=== PATIENT | female | born 1995 | race Caucasian/White ===

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

== ENCOUNTER 2017-03-16 16:46 | Emergency (ER) | payer OTHER ==
[2017-03-16] MEDS: KETOROLAC 60 MG/2 ML VIAL (J1885) IM (18:12)
[2017-03-16] MEDS: ONDANSETRON 4 MG ORAL DISINTEGRATING TAB (S0181) PO (18:12)
== END 2017-03-16 18:41 | disposition home or self-care (01) ==
LOC: M ED 16:46
DX: N93.9 Abnormal uterine and vaginal bleeding, unspecified (principal); N94.6 Dysmenorrhea, unspecified; K21.9 Gastro-esophageal reflux disease without esophagitis; Z79.899 Other long term (current) drug therapy
CPT/HCPCS: J1885

== ENCOUNTER 2017-04-06 22:34 | Emergency (ER) | payer OTHER ==
[2017-04-06] MEDS: GI COCKTAIL 50ML BTL(HYOSCYAMINE/MAALOX/LIDOCAINE VISCOUS)(1:3:1) PO (23:53)
[2017-04-06] MEDS: ACETAMINOPHEN 325 MG TAB PO (23:53)
[2017-04-07 00:01] LABS: CONTROL LINE UCG INT CTR LINE PRESENT; URINE PREG TEST NEGATIVE (NEGATIVE)
[2017-04-07 00:02] LABS: KETONE, URINE AUTO RFX NEGATIVE (NEGATIVE); LEUKOCYTE ESTERASE UR AUTO RFX NEGATIVE (NEGATIVE); MUCUS, URINE RFX SMALL (NEGATIVE); NITRITE, URINE AUTO RFX NEGATIVE (NEGATIVE); RBC, URINE AUTO RFX 3 /HPF (0-3); SPECIFIC GRAVITY UR AUTO RFX 1.016 (1.002-1.035); SQUAM EPITHELIAL CELL UR AURFX 4 /HPF (0-6); WBC, URINE AUTO RFX 1 /HPF (0-3)
== END 2017-04-07 00:29 | disposition home or self-care (01) ==
LOC: M ED 22:34
DX: F41.1 Generalized anxiety disorder (principal); K21.0 Gastro-esophageal reflux disease with esophagitis; R30.0 Dysuria; J45.909 Unspecified asthma, uncomplicated; Z79.899 Other long term (current) drug therapy
CPT/HCPCS: 84703

== ENCOUNTER 2017-04-23 10:00 | Emergency (ER) | payer OTHER ==
[2017-04-23] MEDS ORDERED: MORPHINE 2 MG/ML 1ML SYRINGE (J2270) IV (10:45)
[2017-04-23 11:17] LABS: BASO % 0.5 % (0.0-1.0); EOS # 0.1 10^3/uL (0.0-0.50); EOS % 0.7 % (0.0-3.0); HEMATOCRIT 38.3 % (36.0-47.0); HEMOGLOBIN 12.8 g/dl (12.0-16.0); IMMATURE GRANULOCYTE % 0.1 % (0-3.0); LYMPH % 25.3 % (24.0-44.0); MEAN CORPUSCULAR HEMOGLOBIN 28.1 pg (27.0-33.0); MEAN CORPUSCULAR HGB CONC 33.4 g/dl (32.0-36.5); MONO # 0.8 10^3/uL (0.0-0.8); MONO % 9.7 % (0.0-5.0); NEUTROPHILS # 5.1 10^3/uL (1.8-7.7); NEUTROPHILS % 63.7 % (36.0-66.0); PLATELET COUNT, AUTOMATED 375 10^3/uL (150-450); RED BLOOD COUNT 4.56 10^6/uL (4.00-5.40); RED CELL DISTRIBUTION WIDTH 14.3 % (11.5-14.5)
[2017-04-23 11:29] LABS: KETONE, URINE AUTO RFX 2+ mg/dL (NEGATIVE); LEUKOCYTE ESTERASE UR AUTO RFX NEGATIVE (NEGATIVE); MUCUS, URINE RFX SMALL (NEGATIVE); NITRITE, URINE AUTO RFX NEGATIVE (NEGATIVE); RBC, URINE AUTO RFX 2 /HPF (0-3); SPECIFIC GRAVITY UR AUTO RFX 1.024 (1.002-1.035); SQUAM EPITHELIAL CELL UR AURFX 20 /HPF (0-6); WBC, URINE AUTO RFX 1 /HPF (0-3)
[2017-04-23] MEDS: NS 1,000 ML IV (11:30)
[2017-04-23 11:38] LABS: ALBUMIN 4.1 GM/DL (3.2-5.2); ALBUMIN/GLOBULIN RATIO 1.32 (1.00-1.93); ALKALINE PHOSPHATASE 77 U/L (45-117); ALT/SGPT 20 U/L (12-78); ANION GAP 10 MEQ/L (8-16); AST/SGOT 16 U/L (7-37); BILIRUBIN,TOTAL 0.7 MG/DL (0.2-1.0); BLOOD UREA NITROGEN 5 MG/DL (7-18); CALCIUM LEVEL 8.9 MG/DL (8.5-10.1); CARBON DIOXIDE LEVEL 21 MEQ/L (21-32); CHLORIDE LEVEL 108 MEQ/L (98-107); CREATININE FOR GFR 0.59 MG/DL (0.55-1.30); GLUCOSE, FASTING 93 MG/DL (70-100); SODIUM LEVEL 139 MEQ/L (136-145); TOTAL PROTEIN 7.2 GM/DL (6.4-8.2)
[2017-04-23 11:53] LABS: HCG, SERUM QUANTITATIVE 8955 MIU/ML
== END 2017-04-23 13:43 | disposition home or self-care (01) ==
LOC: M ED 10:00
DX: O20.8 Other hemorrhage in early pregnancy (principal); O99.511 Diseases of the respiratory system complicating pregnancy, first trimester; J45.909 Unspecified asthma, uncomplicated; O99.611 Diseases of the digestive system complicating pregnancy, first trimester; K21.9 Gastro-esophageal reflux disease without esophagitis; O99.341 Other mental disorders complicating pregnancy, first trimester; F41.9 Anxiety disorder, unspecified; F33.9 Major depressive disorder, recurrent, unspecified; Z3A.01 Less than 8 weeks gestation of pregnancy; O34.81 Maternal care for other abnormalities of pelvic organs, first trimester; N83.202 Unspecified ovarian cyst, left side; Z79.899 Other long term (current) drug therapy
CPT/HCPCS: 76801

== ENCOUNTER 2017-04-25 18:49 | Emergency (ER) | payer OTHER ==
[2017-04-25 19:26] LABS: BEDSIDE GLUCOSE 68 MG/DL (70-105)
== END 2017-04-25 20:29 | disposition home or self-care (01) ==
LOC: M ED 18:49
DX: E16.2 Hypoglycemia, unspecified (principal); J45.909 Unspecified asthma, uncomplicated; K21.9 Gastro-esophageal reflux disease without esophagitis; R51 Headache; Z79.899 Other long term (current) drug therapy
CPT/HCPCS: 99284

== ENCOUNTER 2017-05-21 20:16 | Emergency (ER) | payer OTHER ==
[2017-05-21] MEDS: METOCLOPRAMIDE INJ 10MG/2ML VIAL (J2765) IV (23:06)
[2017-05-21] MEDS: NS 1,000 ML IV (23:06)
[2017-05-21] MEDS: ACETAMINOPHEN 325 MG TAB PO (23:06)
[2017-05-21 23:11] LABS: BASO # 0.1 10^3/uL (0.0-0.2); BASO % 0.5 % (0.0-1.0); EOS # 0.2 10^3/uL (0.0-0.50); EOS % 1.4 % (0.0-3.0); HEMATOCRIT 44.8 % (36.0-47.0); HEMOGLOBIN 14.5 g/dl (12.0-16.0); IMMATURE GRANULOCYTE % 0.4 % (0-3.0); LYMPH % 27.7 % (24.0-44.0); MEAN CORPUSCULAR HEMOGLOBIN 27.7 pg (27.0-33.0); MEAN CORPUSCULAR HGB CONC 32.4 g/dl (32.0-36.5); MEAN CORPUSCULAR VOLUME 85.7 fl (80.0-96.0); MONO # 1.1 10^3/uL (0.0-0.8); MONO % 10.1 % (0.0-5.0); NEUTROPHILS # 6.5 10^3/uL (1.8-7.7); NEUTROPHILS % 59.9 % (36.0-66.0); PLATELET COUNT, AUTOMATED 373 10^3/uL (150-450); RED BLOOD COUNT 5.23 10^6/uL (4.00-5.40); RED CELL DISTRIBUTION WIDTH 14.4 % (11.5-14.5); WHITE BLOOD COUNT 10.8 10^3/uL (4.0-10.0)
[2017-05-22 00:34] LABS: ALBUMIN 3.7 GM/DL (3.2-5.2); ALBUMIN/GLOBULIN RATIO 1.19 (1.00-1.93); ALKALINE PHOSPHATASE 75 U/L (45-117); ALT/SGPT 46 U/L (12-78); ANION GAP 6 MEQ/L (8-16); AST/SGOT 26 U/L (7-37); BILIRUBIN,TOTAL 0.5 MG/DL (0.2-1.0); BLOOD UREA NITROGEN 7 MG/DL (7-18); CALCIUM LEVEL 8.6 MG/DL (8.5-10.1); CARBON DIOXIDE LEVEL 24 MEQ/L (21-32); CHLORIDE LEVEL 108 MEQ/L (98-107); CREATININE FOR GFR 0.59 MG/DL (0.55-1.30); GLUCOSE, FASTING 100 MG/DL (70-100); POTASSIUM SERUM 3.7 MEQ/L (3.5-5.1); SODIUM LEVEL 138 MEQ/L (136-145); TOTAL PROTEIN 6.8 GM/DL (6.4-8.2)
== END 2017-05-22 01:11 | disposition home or self-care (01) ==
LOC: M ED 05-22 01:11
DX: O26.891 Other specified pregnancy related conditions, first trimester (principal); M94.0 Chondrocostal junction syndrome [Tietze]; O21.0 Mild hyperemesis gravidarum; Z3A.09 9 weeks gestation of pregnancy; O99.611 Diseases of the digestive system complicating pregnancy, first trimester; K21.9 Gastro-esophageal reflux disease without esophagitis
CPT/HCPCS: J2765

== ENCOUNTER 2017-06-06 20:46 | Emergency (ER) | payer OTHER ==
[2017-06-06] MEDS: ACETAMINOPHEN TAB 650MG DOSE (2X325MG) PO (21:37)
[2017-06-06] MEDS: PANTOPRAZOLE 40MG INJ (PROTONIX) (C9113) IV (21:37)
[2017-06-06] MEDS: NS 1,000 ML IV ×2 (21:37→23:15)
[2017-06-06 21:38] LABS: BASO % 0.3 % (0.0-1.0); EOS # 0.1 10^3/uL (0.0-0.50); EOS % 0.7 % (0.0-3.0); HEMATOCRIT 36.2 % (36.0-47.0); HEMOGLOBIN 12.2 g/dl (12.0-15.5); IMMATURE GRANULOCYTE % 0.3 % (0-3.0); LYMPH # 2.3 10^3/uL (1.5-6.5); MEAN CORPUSCULAR HEMOGLOBIN 28.5 pg (27.0-33.0); MEAN CORPUSCULAR HGB CONC 33.7 g/dl (32.0-36.5); MEAN CORPUSCULAR VOLUME 84.6 fl (80.0-96.0); MONO % 8.9 % (0.0-5.0); NEUTROPHILS # 8.2 10^3/uL (1.8-7.7); NEUTROPHILS % 69.8 % (36.0-66.0); PLATELET COUNT, AUTOMATED 316 10^3/uL (150-450); RED BLOOD COUNT 4.28 10^6/uL (4.00-5.40); RED CELL DISTRIBUTION WIDTH 14.2 % (11.5-14.5); WHITE BLOOD COUNT 11.7 10^3/uL (4.0-10.0)
[2017-06-06 21:54] LABS: ALBUMIN 3.5 GM/DL (3.2-5.2); ALBUMIN/GLOBULIN RATIO 0.95 (1.00-1.93); ALKALINE PHOSPHATASE 72 U/L (45-117); ALT/SGPT 32 U/L (12-78); ANION GAP 7 MEQ/L (8-16); AST/SGOT 19 U/L (7-37); BILIRUBIN,DIRECT < 0.1 MG/DL (0.0-0.2); BILIRUBIN,TOTAL 0.4 MG/DL (0.2-1.0); BLOOD UREA NITROGEN 7 MG/DL (7-18); CALCIUM LEVEL 8.8 MG/DL (8.5-10.1); CARBON DIOXIDE LEVEL 25 MEQ/L (21-32); CHLORIDE LEVEL 107 MEQ/L (98-107); CREATININE FOR GFR 0.53 MG/DL (0.55-1.30); GLUCOSE, FASTING 86 MG/DL (70-100); LIPASE 101 U/L (73-393); POTASSIUM SERUM 3.6 MEQ/L (3.5-5.1); SODIUM LEVEL 139 MEQ/L (136-145); TOTAL PROTEIN 7.2 GM/DL (6.4-8.2)
[2017-06-06 22:07] LABS: KETONE, URINE AUTO RFX NEGATIVE (NEGATIVE); LEUKOCYTE ESTERASE UR AUTO RFX NEGATIVE (NEGATIVE); NITRITE, URINE AUTO RFX NEGATIVE (NEGATIVE); RBC, URINE AUTO RFX 1 /HPF (0-3); SPECIFIC GRAVITY UR AUTO RFX 1.001 (1.002-1.035); SQUAM EPITHELIAL CELL UR AURFX 0 /HPF (0-6); WBC, URINE AUTO RFX 0 /HPF (0-3)
[2017-06-06 22:29] LABS: HCG, SERUM QUANTITATIVE 58571 MIU/ML
[2017-06-06 23:40] LABS: CHLAMYDIA DNA AMPLIFICATION NEGATIVE (NEGATIVE); GC DNA AMPLIFICATION NEGATIVE (NEGATIVE)
== END 2017-06-07 00:11 | disposition home or self-care (01) ==
LOC: M ED 06-07 00:11
DX: O99.89 Other specified diseases and conditions complicating pregnancy, childbirth and the puerperium (principal); R51 Headache; K21.9 Gastro-esophageal reflux disease without esophagitis; O99.341 Other mental disorders complicating pregnancy, first trimester; F41.9 Anxiety disorder, unspecified; Z3A.12 12 weeks gestation of pregnancy; Z79.899 Other long term (current) drug therapy; Z91.013 Allergy to seafood; Z91.018 Allergy to other foods
CPT/HCPCS: C9113

== ENCOUNTER 2017-07-01 06:02 | Emergency (ER) | payer OTHER ==
[2017-07-01] MEDS: ONDANSETRON 4MG/2ML VIAL (J2405) IV (06:45)
[2017-07-01] MEDS: NS 1,000 ML IV (07:00)
[2017-07-01 07:05] LABS: BASO # 0.1 10^3/uL (0.0-0.2); BASO % 0.5 % (0.0-1.0); EOS # 0.1 10^3/uL (0.0-0.50); HEMATOCRIT 35.3 % (36.0-47.0); IMMATURE GRANULOCYTE % 0.4 % (0-3.0); LYMPH # 2.8 10^3/uL (1.5-6.5); LYMPH % 26.6 % (24.0-44.0); MEAN CORPUSCULAR HEMOGLOBIN 28.5 pg (27.0-33.0); MEAN CORPUSCULAR VOLUME 83.8 fl (80.0-96.0); MONO % 9.4 % (0.0-5.0); NEUTROPHILS # 6.5 10^3/uL (1.8-7.7); NEUTROPHILS % 62.1 % (36.0-66.0); PLATELET COUNT, AUTOMATED 292 10^3/uL (150-450); RED BLOOD COUNT 4.21 10^6/uL (4.00-5.40); RED CELL DISTRIBUTION WIDTH 13.7 % (11.5-14.5); WHITE BLOOD COUNT 10.5 10^3/uL (4.0-10.0)
[2017-07-01 07:30] LABS: ALBUMIN 3.2 GM/DL (3.2-5.2); ALBUMIN/GLOBULIN RATIO 0.97 (1.00-1.93); ALKALINE PHOSPHATASE 79 U/L (45-117); ALT/SGPT 31 U/L (12-78); ANION GAP 9 MEQ/L (8-16); AST/SGOT 21 U/L (7-37); BILIRUBIN,DIRECT 0.1 MG/DL (0.0-0.2); BILIRUBIN,TOTAL 0.4 MG/DL (0.2-1.0); BLOOD UREA NITROGEN 4 MG/DL (7-18); CALCIUM LEVEL 8.8 MG/DL (8.5-10.1); CARBON DIOXIDE LEVEL 23 MEQ/L (21-32); CHLORIDE LEVEL 109 MEQ/L (98-107); CREATININE FOR GFR 0.54 MG/DL (0.55-1.30); GLUCOSE, FASTING 97 MG/DL (70-100); LIPASE 95 U/L (73-393); POTASSIUM SERUM 3.9 MEQ/L (3.5-5.1); SODIUM LEVEL 141 MEQ/L (136-145); TOTAL PROTEIN 6.5 GM/DL (6.4-8.2)
[2017-07-01 07:42] LABS: KETONE, URINE AUTO RFX NEGATIVE (NEGATIVE); LEUKOCYTE ESTERASE UR AUTO RFX NEGATIVE (NEGATIVE); NITRITE, URINE AUTO RFX NEGATIVE (NEGATIVE); RBC, URINE AUTO RFX 1 /HPF (0-3); SPECIFIC GRAVITY UR AUTO RFX 1.002 (1.002-1.035); SQUAM EPITHELIAL CELL UR AURFX 2 /HPF (0-6); WBC, URINE AUTO RFX 1 /HPF (0-3)
[2017-07-01] MEDS: ACETAMINOPHEN 325 MG TAB PO (07:56)
== END 2017-07-01 08:50 | disposition home or self-care (01) ==
LOC: M ED 06:02
DX: O21.9 Vomiting of pregnancy, unspecified (principal); O99.512 Diseases of the respiratory system complicating pregnancy, second trimester; J45.909 Unspecified asthma, uncomplicated; O99.612 Diseases of the digestive system complicating pregnancy, second trimester; K21.9 Gastro-esophageal reflux disease without esophagitis; Z3A.16 16 weeks gestation of pregnancy; Z79.899 Other long term (current) drug therapy; Z91.018 Allergy to other foods; Z91.013 Allergy to seafood
CPT/HCPCS: J2405

== ENCOUNTER 2017-10-20 15:18 | Emergency (ER) | payer OTHER ==
[2017-10-20 16:12] LABS: BASO # 0.1 10^3/uL (0.0-0.2); BASO % 0.5 % (0.0-1.0); EOS # 0.1 10^3/uL (0.0-0.50); EOS % 0.6 % (0.0-3.0); HEMATOCRIT 31.2 % (36.0-47.0); HEMOGLOBIN 10.1 g/dl (12.0-15.5); IMMATURE GRANULOCYTE % 0.9 % (0-3.0); LYMPH # 2.1 10^3/uL (1.5-6.5); LYMPH % 19.8 % (24.0-44.0); MEAN CORPUSCULAR HEMOGLOBIN 27.4 pg (27.0-33.0); MEAN CORPUSCULAR HGB CONC 32.4 g/dl (32.0-36.5); MEAN CORPUSCULAR VOLUME 84.8 fl (80.0-96.0); MONO % 9.2 % (0.0-5.0); NEUTROPHILS # 7.3 10^3/uL (1.8-7.7); PLATELET COUNT, AUTOMATED 293 10^3/uL (150-450); RED BLOOD COUNT 3.68 10^6/uL (4.00-5.40); WHITE BLOOD COUNT 10.6 10^3/uL (4.0-10.0)
[2017-10-20] MEDS: NS 1,000 ML IV (16:19)
[2017-10-20] MEDS: ONDANSETRON 4MG/2ML VIAL (J2405) IV (16:19)
[2017-10-20 16:28] LABS: KETONE, URINE AUTO RFX NEGATIVE (NEGATIVE); LEUKOCYTE ESTERASE UR AUTO RFX NEGATIVE (NEGATIVE); MUCUS, URINE RFX SMALL (NEGATIVE); NITRITE, URINE AUTO RFX NEGATIVE (NEGATIVE); RBC, URINE AUTO RFX 4 /HPF (0-3); SPECIFIC GRAVITY UR AUTO RFX 1.024 (1.002-1.035); SQUAM EPITHELIAL CELL UR AURFX 3 /HPF (0-6); WBC, URINE AUTO RFX 3 /HPF (0-3)
[2017-10-20 16:37] LABS: ALBUMIN 2.5 GM/DL (3.2-5.2); ALBUMIN/GLOBULIN RATIO 0.56 (1.00-1.93); ALKALINE PHOSPHATASE 133 U/L (45-117); ALT/SGPT 29 U/L (12-78); ANION GAP 10 MEQ/L (8-16); AST/SGOT 28 U/L (7-37); BILIRUBIN,DIRECT < 0.1 MG/DL (0.0-0.2); BILIRUBIN,TOTAL 0.3 MG/DL (0.2-1.0); BLOOD UREA NITROGEN 5 MG/DL (7-18); CALCIUM LEVEL 8.2 MG/DL (8.5-10.1); CARBON DIOXIDE LEVEL 20 MEQ/L (21-32); CHLORIDE LEVEL 109 MEQ/L (98-107); CK-MB VALUE MASS < 1.0 NG/ML (<3.6); CPK CREATINE PHOSPHOKINASE 65 U/L (26-192); CREATININE FOR GFR 0.61 MG/DL (0.55-1.30); GLUCOSE, FASTING 85 MG/DL (70-100); INR 1.02; LIPASE 111 U/L (73-393); MAGNESIUM LEVEL 1.9 MG/DL (1.8-2.4); MB/CK RELATIVE INDEX 1.53 (< OR =4); POTASSIUM SERUM 3.9 MEQ/L (3.5-5.1); PROTHROMBIN TIME 13.5 SECONDS (12.1-14.4); SODIUM LEVEL 139 MEQ/L (136-145); TROPONIN I < 0.02 NG/ML (< 0.10)
== END 2017-10-20 17:53 | disposition home or self-care (01) ==
LOC: M ED 15:18
DX: F41.9 Anxiety disorder, unspecified (principal); R00.0 Tachycardia, unspecified; I45.19 Other right bundle-branch block; Z79.899 Other long term (current) drug therapy; Z91.013 Allergy to seafood; Z91.018 Allergy to other foods
CPT/HCPCS: J2405

== ENCOUNTER 2017-10-22 10:29 | Emergency (ER) | payer OTHER | END 2017-10-22 12:34 | disposition home or self-care (01) | LOC: M ED 10:29 | DX: O99.89 Other specified diseases and conditions complicating pregnancy, childbirth and the puerperium (principal); R55 Syncope and collapse; Z91.018 Allergy to other foods; Z91.013 Allergy to seafood; Z3A.32 32 weeks gestation of pregnancy; Z79.899 Other long term (current) drug therapy | CPT/HCPCS: 93005 ==

== ENCOUNTER 2017-11-05 17:28 | Emergency (ER) | payer OTHER ==
[2017-11-05] MEDS: NS 1,000 ML IV ×2 (18:16)
[2017-11-05 18:29] LABS: BASO % 0.3 % (0.0-1.0); EOS % 0.4 % (0.0-3.0); HEMOGLOBIN 10.1 g/dl (12.0-15.5); IMMATURE GRANULOCYTE % 0.8 % (0-3.0); KETONE, URINE AUTO RFX NEGATIVE (NEGATIVE); LEUKOCYTE ESTERASE UR AUTO RFX NEGATIVE (NEGATIVE); LYMPH # 1.7 10^3/uL (1.5-6.5); LYMPH % 15.8 % (24.0-44.0); MEAN CORPUSCULAR HEMOGLOBIN 26.9 pg (27.0-33.0); MEAN CORPUSCULAR HGB CONC 31.6 g/dl (32.0-36.5); MEAN CORPUSCULAR VOLUME 85.1 fl (80.0-96.0); MONO # 1.1 10^3/uL (0.0-0.8); MONO % 10.4 % (0.0-5.0); NEUTROPHILS # 7.8 10^3/uL (1.8-7.7); NEUTROPHILS % 72.3 % (36.0-66.0); NITRITE, URINE AUTO RFX NEGATIVE (NEGATIVE); PLATELET COUNT, AUTOMATED 316 10^3/uL (150-450); RBC, URINE AUTO RFX 1 /HPF (0-3); RED BLOOD COUNT 3.76 10^6/uL (4.00-5.40); RED CELL DISTRIBUTION WIDTH 13.2 % (11.5-14.5); SQUAM EPITHELIAL CELL UR AURFX 1 /HPF (0-6); WBC, URINE AUTO RFX 1 /HPF (0-3); WHITE BLOOD COUNT 10.8 10^3/uL (4.0-10.0)
[2017-11-05 19:11] LABS: ALBUMIN 2.7 GM/DL (3.2-5.2); ALBUMIN/GLOBULIN RATIO 0.69 (1.00-1.93); ALKALINE PHOSPHATASE 150 U/L (45-117); ALT/SGPT 26 U/L (12-78); ANION GAP 8 MEQ/L (8-16); AST/SGOT 26 U/L (7-37); BILIRUBIN,TOTAL 0.5 MG/DL (0.2-1.0); BLOOD UREA NITROGEN 6 MG/DL (7-18); CALCIUM LEVEL 8.7 MG/DL (8.5-10.1); CARBON DIOXIDE LEVEL 23 MEQ/L (21-32); CHLORIDE LEVEL 107 MEQ/L (98-107); CK-MB VALUE MASS < 1.0 NG/ML (<3.6); CPK CREATINE PHOSPHOKINASE 44 U/L (26-192); CREATININE FOR GFR 0.61 MG/DL (0.55-1.30); FREE THYROXINE INDEX 2.9 % (1.3-4.8); GLUCOSE, FASTING 91 MG/DL (70-100); MB/CK RELATIVE INDEX 2.27 (< OR =4); POTASSIUM SERUM 3.8 MEQ/L (3.5-5.1); SODIUM LEVEL 138 MEQ/L (136-145); T UPTAKE 21 % (30-39); THYROXINE (T4) 13.6 UG/DL (6.0-11.6); TOTAL PROTEIN 6.6 GM/DL (6.4-8.2); TROPONIN I < 0.02 NG/ML (< 0.10)
[2017-11-05] MEDS ORDERED: ISOVUE-370 76% 100ML VIAL (Q9967) As Ordered ×2 (19:57)
[2017-11-05] MEDS: ENOXAPARIN 80 MG/0.8 ML SYRINGE (J1650) SC ×2 (21:30)
[2017-11-05] MEDS: ALBUTEROL 90 MCG/ACT 8GM HFA INHALER INH ×2 (22:20)
== END 2017-11-05 22:20 | disposition home or self-care (01) ==
LOC: M ED 17:28
DX: O88.813 Other embolism in pregnancy, third trimester (principal); R00.0 Tachycardia, unspecified; R94.31 Abnormal electrocardiogram [ECG] [EKG]; Z3A.34 34 weeks gestation of pregnancy; O99.511 Diseases of the respiratory system complicating pregnancy, first trimester; O99.354 Diseases of the nervous system complicating childbirth; O99.344 Other mental disorders complicating childbirth; Z79.899 Other long term (current) drug therapy; Z91.013 Allergy to seafood; Z91.018 Allergy to other foods
CPT/HCPCS: Q9967

== ENCOUNTER 2017-11-10 12:04 | Inpatient (IN) | payer OTHER ==
[2017-11-10 12:44] LABS: HEMATOCRIT 29.7 % (36.0-47.0); HEMOGLOBIN 9.4 g/dl (12.0-15.5); MEAN CORPUSCULAR HEMOGLOBIN 26.2 pg (27.0-33.0); MEAN CORPUSCULAR HGB CONC 31.6 g/dl (32.0-36.5); MEAN CORPUSCULAR VOLUME 82.7 fl (80.0-96.0); PLATELET COUNT, AUTOMATED 268 10^3/uL (150-450); RED BLOOD COUNT 3.59 10^6/uL (4.00-5.40); RED CELL DISTRIBUTION WIDTH 13.1 % (11.5-14.5); WHITE BLOOD COUNT 10.7 10^3/uL (4.0-10.0)
[2017-11-10 12:54] LABS: INR 0.92; PROTHROMBIN TIME 12.5 SECONDS (12.1-14.4)
[2017-11-10 12:55] LABS: FIBRINOGEN 527 MG/DL (221-452); PARTIAL THROMBOPLASTIN TIME 28.6 SECONDS (25.4-37.6)
[2017-11-10 13:44] LABS: ALBUMIN 2.4 GM/DL (3.2-5.2); ALBUMIN/GLOBULIN RATIO 0.56 (1.00-1.93); ALKALINE PHOSPHATASE 144 U/L (45-117); ALT/SGPT 20 U/L (12-78); ANION GAP 13 MEQ/L (8-16); AST/SGOT 32 U/L (7-37); BILIRUBIN,TOTAL 0.3 MG/DL (0.2-1.0); BLOOD UREA NITROGEN 4 MG/DL (7-18); CALCIUM LEVEL 8.6 MG/DL (8.5-10.1); CARBON DIOXIDE LEVEL 19 MEQ/L (21-32); CHLORIDE LEVEL 109 MEQ/L (98-107); CREATININE FOR GFR 0.62 MG/DL (0.55-1.30); GLUCOSE, FASTING 89 MG/DL (70-100); POTASSIUM SERUM 3.4 MEQ/L (3.5-5.1); SODIUM LEVEL 141 MEQ/L (136-145); TOTAL PROTEIN 6.7 GM/DL (6.4-8.2)
[2017-11-10] MEDS: LACTATED RINGER'S 1000 ML IV (13:51)
[2017-11-10] MEDS: LR 1,000 ML IV (14:49)
[2017-11-11] MEDS: HEPARIN SOD (PORCINE) 5000 UNITS/ML VIAL SQ (06:54)
== END 2017-11-11 09:38 | disposition home or self-care (01) | DRG 781 ==
LOC: M LDI 12:04
PROVIDERS: Obstetrics & Gynecology
DX: O36.8330 Maternal care for abnormalities of the fetal heart rate or rhythm, third trimester, not applicable or unspecified (principal); O99.343 Other mental disorders complicating pregnancy, third trimester; Z3A.35 35 weeks gestation of pregnancy; F32.9 Major depressive disorder, single episode, unspecified; F41.0 Panic disorder [episodic paroxysmal anxiety]; Z86.711 Personal history of pulmonary embolism; Z79.01 Long term (current) use of anticoagulants

== ENCOUNTER 2017-12-08 13:38 | Inpatient (IN) | payer OTHER ==
[2017-12-08] MEDS: LACTATED RINGER'S 1000 ML IV (14:48)
[2017-12-08 14:56] LABS: BASO % 0.5 % (0.0-1.0); EOS % 0.4 % (0.0-3.0); HEMATOCRIT 28.8 % (36.0-47.0); HEMOGLOBIN 8.9 g/dl (12.0-15.5); IMMATURE GRANULOCYTE % 1.2 % (0-3.0); LYMPH # 2.2 10^3/uL (1.5-6.5); LYMPH % 26.7 % (24.0-44.0); MEAN CORPUSCULAR HEMOGLOBIN 24.7 pg (27.0-33.0); MEAN CORPUSCULAR HGB CONC 30.9 g/dl (32.0-36.5); MEAN CORPUSCULAR VOLUME 79.8 fl (80.0-96.0); MONO # 0.9 10^3/uL (0.0-0.8); MONO % 10.9 % (0.0-5.0); NEUTROPHILS % 60.3 % (36.0-66.0); PLATELET COUNT, AUTOMATED 317 10^3/uL (150-450); RED BLOOD COUNT 3.61 10^6/uL (4.00-5.40); RED CELL DISTRIBUTION WIDTH 14.5 % (11.5-14.5); WHITE BLOOD COUNT 8.3 10^3/uL (4.0-10.0)
[2017-12-08] MEDS ORDERED: miSOPROStol 50 MCG 1/2 TAB (S0191) PO (16:30)
[2017-12-08] MEDS: miSOPROStol 50 MCG 1/2 TAB (S0191) PO (17:04)
[2017-12-08] MEDS: PROMETHAZINE INJ 25 MG/ML VIAL (J2550) IV (23:21)
[2017-12-08] MEDS: NALBUPHINE HCL 10 MG/ML AMP (J2300) IV (23:21)
[2017-12-09] MEDS: NALBUPHINE HCL 10 MG/ML AMP (J2300) IV (03:00)
[2017-12-09] MEDS: OXYTOCIN DRIP 30 UNITS in APPROPRIATE DILUENT 1 EA IV (08:42)
[2017-12-09] MEDS ORDERED: FENTANYL 2MCG/ML ROPIVACAINE 0.2% IN 0.9% NACL 200ML IVBAG As Ordered (09:09)
[2017-12-09] MEDS: LR 1,000 ML IV ×3 (09:33→18:29)
[2017-12-09] MEDS: FENTANYL/ROPIVACAINE/NACL BAG 200 ML EPIDURAL (09:57)
[2017-12-09] MEDS ORDERED: diphenhydrAMINE INJ 50MG/ML VIAL (J1200) IV (11:00)
[2017-12-09] MEDS ORDERED: EPIDURAL/PCA KEYS XX (11:00)
[2017-12-09] MEDS ORDERED: REFRIGERATOR IV KEYS XX (11:00)
[2017-12-09] MEDS ORDERED: NALOXONE INJ 0.4 MG/1 ML VIAL (J2310) IV (11:00)
[2017-12-09] MEDS ORDERED: EPIDURAL COMMENT XX (11:00)
[2017-12-09] MEDS ORDERED: ONDANSETRON 4MG/2ML VIAL (J2405) IV (11:00)
[2017-12-09] MEDS: ePHEDrine SULFATE 25 MG/5 ML(5MG/ML) SYRINGE IV ×2 (11:21→11:31)
[2017-12-09] MEDS: LACTATED RINGER'S 1000 ML IV (11:22)
[2017-12-09] MEDS ORDERED: ACETAMINOPHEN TAB 650MG DOSE (2X325MG) As Ordered (22:19)
[2017-12-10] MEDS: ACETAMINOPHEN TAB 650MG DOSE (2X325MG) PO ×2 (04:45→22:15)
[2017-12-10] MEDS ORDERED: RHOGAM 300 MCG (1500 IU) INJ (J2790) IM (08:45)
[2017-12-10] MEDS ORDERED: METOCLOPRAMIDE INJ 10MG/2ML VIAL (J2765) IV (08:45)
[2017-12-10] MEDS ORDERED: MEASLES,MUMPS,RUBELLA VACCINE INJ (MMR-II) (90707) SC (08:45)
[2017-12-10] MEDS: PRENATAL VITAMINS CHEWABLE TABLET PO (09:00)
[2017-12-10] MEDS: DOCUSATE SODIUM 100 MG CAP PO ×2 (09:00→20:14)
[2017-12-10] MEDS: IBUPROFEN 800 MG TAB PO ×2 (10:48→20:14)
[2017-12-10] MEDS: OXYTOCIN DRIP 30 UNITS in APPROPRIATE DILUENT 1 EA IV (10:48)
[2017-12-10] MEDS: ENOXAPARIN 80 MG/0.8 ML SYRINGE (J1650) SC (18:33)
[2017-12-11] MEDS: IBUPROFEN 800 MG TAB PO ×2 (03:19→17:00)
[2017-12-11] MEDS: ENOXAPARIN 80 MG/0.8 ML SYRINGE (J1650) SC ×2 (05:42→17:46)
[2017-12-11] MEDS: ACETAMINOPHEN TAB 650MG DOSE (2X325MG) PO ×2 (08:22→22:01)
[2017-12-11] MEDS: PRENATAL VITAMINS CHEWABLE TABLET PO (08:22)
[2017-12-11] MEDS: DOCUSATE SODIUM 100 MG CAP PO ×2 (08:22→21:00)
[2017-12-12] MEDS: IBUPROFEN 800 MG TAB PO (04:55)
[2017-12-12] MEDS: ENOXAPARIN 80 MG/0.8 ML SYRINGE (J1650) SC (06:37)
[2017-12-12] MEDS: PRENATAL VITAMINS CHEWABLE TABLET PO (08:09)
[2017-12-12] MEDS: ACETAMINOPHEN TAB 650MG DOSE (2X325MG) PO (08:09)
[2017-12-12] MEDS: DOCUSATE SODIUM 100 MG CAP PO (08:10)
[2017-12-12] MEDS: DIBUCAINE 1% OINTMENT 30GM TOP (10:44)
== END 2017-12-12 12:40 | disposition home or self-care (01) | DRG 774 ==
LOC: M LDI 13:38 → M OBS 12-10 13:01
PROVIDERS: Obstetrics & Gynecology
PROC: 3E0P7GC Introduction of Other Therapeutic Substance into Female Reproductive, Via Natural or Artificial Opening (ICD-10-PCS; 2017-12-08)
PROC: 10E0XZZ Delivery of Products of Conception, External Approach (ICD-10-PCS; principal; 2017-12-10)
PROC: 0UQG7ZZ Repair Vagina, Via Natural or Artificial Opening (ICD-10-PCS; 2017-12-10)
DX: O88.22 Thromboembolism in childbirth (principal); I26.99 Other pulmonary embolism without acute cor pulmonale; O71.4 Obstetric high vaginal laceration alone; Z3A.39 39 weeks gestation of pregnancy; O99.52 Diseases of the respiratory system complicating childbirth; J45.909 Unspecified asthma, uncomplicated; Z37.0 Single live birth; Z79.01 Long term (current) use of anticoagulants

== ENCOUNTER 2017-12-13 00:31 | Emergency (ER) | payer OTHER | END 2017-12-13 00:47 | disposition left against medical advice (07) | LOC: M ED 00:31 | DX: R50.9 Fever, unspecified (principal); Z53.21 Procedure and treatment not carried out due to patient leaving prior to being seen by health care provider ==

== ENCOUNTER 2017-12-30 20:34 | Emergency (ER) | payer OTHER ==
[2017-12-30] MEDS: FLEET ENEMA PR (21:47)
== END 2017-12-30 22:44 | disposition home or self-care (01) ==
LOC: M ED 20:34
DX: K59.00 Constipation, unspecified (principal); N93.9 Abnormal uterine and vaginal bleeding, unspecified; Z91.018 Allergy to other foods; Z91.013 Allergy to seafood; Z79.01 Long term (current) use of anticoagulants
CPT/HCPCS: 99283

== ENCOUNTER 2018-03-22 15:13 | Emergency (ER) | payer OTHER ==
[~2018-03-22] VITALS: Ht 157.5 cm; Wt 62.7 kg
[~2018-03-22 15:13] MED LIST changes: +ALBU17IN2 INH; +ALBU83IN INH; +BUTACAP4 PO; +COLA100C5 PO; +EQ N PO; +GAS-125C PO; +GAS-80CH PO; +HEPA1000VL SQ; +IBUP-1114 PO; +LOVE0.6I2 SC; +LOVE1INJ SC; +MAPA500T2 PO; +NAPR-50 PO; -NAPR500T PO; +NEXI20CA PO; +NEXI20GR PO; +OTC stool softener; +POLY33503 PO; +PRENTAB77 PO; +PRENTAB9 PO; +PROT1TAB2 PO; +REGL10TA6 PO; +SERT-155 PO; +STOO100C PO; +TUMS500C PO; +TUMSCHW16 PO; +VENTAER INH; +ZOFR4TAB14 PO; +[UNRECOGNIZED DRUG - CODE] INH; +[UNRECOGNIZED DRUG - REMARK]
[2018-03-22 15:55] LABS: HEMATOCRIT 41.9 % (36.0-47.0); HEMOGLOBIN 13.5 g/dl (12.0-15.5); MEAN CORPUSCULAR HEMOGLOBIN 27.1 pg (27.0-33.0); MEAN CORPUSCULAR HGB CONC 32.2 g/dl (32.0-36.5); MEAN CORPUSCULAR VOLUME 84.1 fl (80.0-96.0); PLATELET COUNT, AUTOMATED 413 10^3/uL (150-450); RED BLOOD COUNT 4.98 10^6/uL (4.00-5.40); WHITE BLOOD COUNT 8.3 10^3/uL (4.0-10.0)
[2018-03-22 16:27] LABS: URINE PREG TEST NEGATIVE (NEGATIVE)
[2018-03-22 17:37] VITALS: BP 102/57
== END 2018-03-22 17:42 | disposition home or self-care (01) ==
LOC: M ED 15:13
DX: N92.1 Excessive and frequent menstruation with irregular cycle (principal)

== ENCOUNTER 2018-04-21 22:54 | Emergency (ER) | payer OTHER ==
[~2018-04-21] VITALS: Ht 157.5 cm; Wt 63.6 kg
[2018-04-22] MEDS ORDERED: ISOVUE-370 76% 100ML VIAL (Q9967) As Ordered ONE (00:30)
[2018-04-22] MEDS ORDERED: NS 500 ML IV ONE (00:30)
[2018-04-22 00:37] LABS: BASO # 0.1 10^3/uL (0.0-0.2); BASO % 0.9 % (0.0-1.0); EOS # 0.1 10^3/uL (0.0-0.50); EOS % 1.3 % (0.0-3.0); HEMATOCRIT 40.4 % (36.0-47.0); LYMPH # 3.6 10^3/uL (1.5-6.5); LYMPH % 39.5 % (24.0-44.0); MEAN CORPUSCULAR HEMOGLOBIN 27.3 pg (27.0-33.0); MEAN CORPUSCULAR HGB CONC 32.2 g/dl (32.0-36.5); MEAN CORPUSCULAR VOLUME 84.9 fl (80.0-96.0); MONO # 0.9 10^3/uL (0.0-0.8); MONO % 10.1 % (0.0-5.0); NEUTROPHILS # 4.3 10^3/uL (1.8-7.7); PLATELET COUNT, AUTOMATED 385 10^3/uL (150-450); RED BLOOD COUNT 4.76 10^6/uL (4.00-5.40)
[2018-04-22 00:48] LABS: BLOOD UREA NITROGEN 12 MG/DL (7-18); CALCIUM LEVEL 8.9 MG/DL (8.5-10.1); CARBON DIOXIDE LEVEL 29 MEQ/L (21-32); CHLORIDE LEVEL 108 MEQ/L (98-107); CK-MB VALUE MASS < 1.0 NG/ML (<3.6); CPK CREATINE PHOSPHOKINASE 70 U/L (26-192); CREATININE FOR GFR 0.77 MG/DL (0.55-1.30); GLOMERULAR FILTRATION RATE > 60.0 (>60); GLUCOSE, FASTING 73 MG/DL (70-100); MB/CK RELATIVE INDEX 1.43 (< OR =4); POTASSIUM SERUM 3.6 MEQ/L (3.5-5.1); SODIUM LEVEL 143 MEQ/L (136-145); TROPONIN I < 0.02 NG/ML (< 0.10)
[2018-04-22 00:55] LABS: HCG, SERUM QUALITATIVE NEGATIVE (NEGATIVE)
--- NOTE | 2018-04-22 01:56 | REPVR ---
EXAM: CT Angiography Chest With Contrast EXAM DATE/TIME: 04/22/2018 12:22 AM CLINICAL HISTORY: 23 years old, female; Chest pain; R/O PE TECHNIQUE: Axial computed tomographic angiography images of the chest with intravenous contrast using CT angiography protocol. All CT scans at this facility use at least one of these dose optimization techniques: automated exposure control; mA and/or kV adjustment per patient size (includes targeted exams where dose is matched to clinical indication); or iterative reconstruction. Coronal and sagittal reformatted images were created and reviewed. MIP reconstructed images were created and reviewed. CONTRAST: Contrast Material: 75 ml of iso; Contrast Route: ac COMPARISON: CT ANGIO CHEST 11/05/2017 7:57 PM FINDINGS: Pulmonary arteries: No pulmonary embolism is identified. The previously noted pulmonary embolism in the lingula described in the CTA chest on 11/05/2017 has resolved. Aorta: There is no thoracic aortic aneurysm, pseudoaneurysm, penetrating atherosclerotic ulcer, or dissection. Lungs: The lungs are clear. There is no lung consolidation, pulmonary infarct, or mass. No emphysematous changes or interstitial lung disease is noted. The major airways are patent. Pleural space: Normal. No pneumothorax. No pleural effusion. Heart: No cardiomegaly. No pericardial effusion. The ratio of the diameter of the right ventricle to the diameter of the left ventricle measures less than 1, which is within normal limits and there is no evidence for a right ventricular strain. Mediastinum: No mediastinal mass, hemorrhage, or pneumomediastinum is noted. Gallbladder and bile ducts: The gallbladder is contracted. No calcified gallstones are seen. No gallbladder wall thickening, pericholecystic fluid, or pericholecystic inflammatory changes are identified. No dilation of the intrahepatic or extrahepatic bile ducts is noted. Spleen: Unremarkable. No splenomegaly is noted. Adrenals: Normal. No mass. Lymph nodes: Normal. No enlarged lymph nodes. Bones/joints: The imaged bony structures are intact. There is no suspicious osteolytic or osteoblastic lesion. Soft tissues: Unremarkable. IMPRESSION: No acute findings in the chest. No pulmonary embolism. Electronically signed by: Ignacio Stewart On 04/22/2018 01:56:10 AM
[2018-04-22] MEDS ORDERED: PROAAER10 INH (02:45)
[2018-04-22] MEDS ORDERED: METAL LOCK LOOP XX ONE (03:05)
[2018-04-22 03:09] VITALS: BP 118/71
--- NOTE | 2018-04-22 20:54 | ECGEPIP ---
Stationary ECG Study [facility] - ED Test Date: 2018-04-21 Pat Name: LINDA BARNES Department: Room: - Gender: F Dyer Assistant: SARAH : 1995 Requested By: DARIN Garcia Order Number: [id number] Reading MD: Joan Tapia Measurements Intervals [place] Rate: 68 P: 57 [place]: 159 QRS: 19 QRSD: 84 T: 31 QT: 383 QTc: 408 Interpretive Statements SINUS RHYTHM WITH SINUS ARRHYTHMIA NONSPECIFIC T-WAVE ABNORMALITY DECREASED RATE 11/05/17 Electronically Signed On 04-22-2018 20:53:54 EST by Joan Tapia
== END 2018-04-22 03:10 | disposition home or self-care (01) ==
LOC: M ED 22:54
DX: R07.89 Other chest pain (principal); K21.9 Gastro-esophageal reflux disease without esophagitis; F41.1 Generalized anxiety disorder; K92.9 Disease of digestive system, unspecified; J98.4 Other disorders of lung; Z86.711 Personal history of pulmonary embolism; Z91.013 Allergy to seafood; Z91.018 Allergy to other foods; Z79.01 Long term (current) use of anticoagulants
CPT/HCPCS: 71275; 80048; 82550; 82553; 84484; 84703; 85025; 93005; 93041; 94760; 99285; Q9967

== ENCOUNTER 2018-09-18 00:14 | Emergency (ER) | payer OTHER ==
[~2018-09-18] VITALS: Ht 157.5 cm; Wt 61.4 kg
[~2018-09-18 00:14] MED LIST changes: -ALBU17IN2 INH; +MM S100C PO; -NAPR-50 PO; +NAPR-837 PO; +PROV108A INH; -SERT-155 PO; +SERT50TA29 PO; -STOO100C PO
[2018-09-18 03:35] LABS: BASO % 0.5 % (0.0-1.0); EOS # 0.1 10^3/uL (0.0-0.50); EOS % 1.3 % (0.0-3.0); HEMATOCRIT 36.4 % (36.0-47.0); HEMOGLOBIN 11.8 g/dl (12.0-15.5); LYMPH # 3.5 10^3/uL (1.5-6.5); LYMPH % 41.9 % (24.0-44.0); MEAN CORPUSCULAR HGB CONC 32.4 g/dl (32.0-36.5); MEAN CORPUSCULAR VOLUME 86.3 fl (80.0-96.0); MONO # 0.7 10^3/uL (0.0-0.8); MONO % 8.6 % (0.0-5.0); NEUTROPHILS # 3.9 10^3/uL (1.8-7.7); NEUTROPHILS % 47.6 % (36.0-66.0); PLATELET COUNT, AUTOMATED 335 10^3/uL (150-450); RED BLOOD COUNT 4.22 10^6/uL (4.00-5.40); WHITE BLOOD COUNT 8.3 10^3/uL (4.0-10.0)
[2018-09-18 04:05] LABS: BLOOD UREA NITROGEN 12 MG/DL (7-18); CALCIUM LEVEL 8.8 MG/DL (8.5-10.1); CARBON DIOXIDE LEVEL 27 MEQ/L (21-32); CHLORIDE LEVEL 108 MEQ/L (98-107); CK-MB VALUE MASS < 1.0 NG/ML (<3.6); CPK CREATINE PHOSPHOKINASE 92 U/L (26-192); CREATININE FOR GFR 0.74 MG/DL (0.55-1.30); FREE T4 0.99 NG/DL (0.76-1.46); GLOMERULAR FILTRATION RATE > 60.0 (>60); GLUCOSE, FASTING 87 MG/DL (70-100); MB/CK RELATIVE INDEX 1.09 (< OR =4); POTASSIUM SERUM 3.9 MEQ/L (3.5-5.1); SODIUM LEVEL 142 MEQ/L (136-145); TROPONIN I < 0.02 NG/ML (< 0.10)
[2018-09-18 04:12] LABS: HCG, SERUM QUALITATIVE NEGATIVE (NEGATIVE)
[2018-09-18] MEDS ORDERED: NAPROXEN 250 MG TAB PO ONE (05:15)
[2018-09-18] MEDS ORDERED: NAPR-837 PO (05:16)
[2018-09-18 05:42] VITALS: BP 98/54
--- NOTE | 2018-09-18 06:32 | ECGEPIP ---
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
--- NOTE | 2018-09-18 06:52 | REP ---
Clinical: Acute chest pain . Comparison: None . Technique: PA and lateral. Findings: The mediastinum and cardiac silhouette are normal. The lung bell are clear and without acute consolidation, effusion, or pneumothorax. The skeletal structures are intact and normal. Impression: 1. No acute cardiopulmonary process. Electronically Signed by Humphrey Woo MD 09/18/2018 06:44 A
== END 2018-09-18 05:42 | disposition home or self-care (01) ==
LOC: M ED 00:14
DX: R07.89 Other chest pain (principal); R00.1 Bradycardia, unspecified; Z79.51 Long term (current) use of inhaled steroids; Z79.899 Other long term (current) drug therapy; Z91.013 Allergy to seafood; Z91.018 Allergy to other foods

== ENCOUNTER 2018-11-30 22:21 | Emergency (ER) | payer OTHER ==
[~2018-11-30] VITALS: Ht 154.9 cm; Wt 58.1 kg
[~2018-11-30 22:21] MED LIST changes: +SERT-155 PO; -SERT50TA29 PO
[2018-11-30 23:03] LABS: BASO # 0.1 10^3/uL (0.0-0.2); BASO % 0.8 % (0.0-1.0); EOS # 0.1 10^3/uL (0.0-0.5); EOS % 1.3 % (0.0-3.0); HEMATOCRIT 40.4 % (36.0-47.0); HEMOGLOBIN 13.3 g/dl (12.0-15.5); LYMPH # 2.9 10^3/uL (1.5-5.0); LYMPH % 38.1 % (24.0-44.0); MEAN CORPUSCULAR HEMOGLOBIN 28.4 pg (27.0-33.0); MEAN CORPUSCULAR HGB CONC 32.9 g/dl (32.0-36.5); MEAN CORPUSCULAR VOLUME 86.1 fl (80.0-96.0); MONO # 0.9 10^3/uL (0.0-0.8); MONO % 11.3 % (0.0-5.0); NEUTROPHILS # 3.7 10^3/uL (1.5-8.5); NEUTROPHILS % 48.4 % (36.0-66.0); PLATELET COUNT, AUTOMATED 335 10^3/uL (150-450); RED BLOOD COUNT 4.69 10^6/uL (4.00-5.40); WHITE BLOOD COUNT 7.6 10^3/uL (4.0-10.0)
[2018-11-30 23:16] LABS: INR 1.13; PROTHROMBIN TIME 14.2 SECONDS (11.8-14.0)
[2018-11-30 23:17] LABS: PARTIAL THROMBOPLASTIN TIME 31.5 SECONDS (25.0-38.4)
[2018-11-30 23:22] LABS: HCG, SERUM QUALITATIVE NEGATIVE (NEGATIVE)
[2018-11-30 23:27] LABS: BLOOD UREA NITROGEN 12 MG/DL (7-18); CALCIUM LEVEL 8.8 MG/DL (8.5-10.1); CARBON DIOXIDE LEVEL 26 MEQ/L (21-32); CHLORIDE LEVEL 107 MEQ/L (98-107); CK-MB VALUE MASS < 1.0 NG/ML (<3.6); CPK CREATINE PHOSPHOKINASE 65 U/L (26-192); GLOMERULAR FILTRATION RATE > 60.0 (>60); GLUCOSE, FASTING 102 MG/DL (70-100); MB/CK RELATIVE INDEX 1.54 (< OR =4); POTASSIUM SERUM 4.1 MEQ/L (3.5-5.1); SODIUM LEVEL 141 MEQ/L (136-145); TROPONIN I < 0.02 NG/ML (< 0.10)
[2018-11-30] MEDS ORDERED: ISOVUE-370 76% 100ML VIAL (Q9967) As Ordered ONE (23:43)
[2018-12-01] MEDS ORDERED: dexameTHASONE 20 MG/5 ML VIAL (J1100) IV ONE
[2018-12-01] MEDS ORDERED: KETOROLAC 30 MG/ML VIAL (J1885) IV ONE
[2018-12-01] MEDS ORDERED: NS 500 ML IV ONE
--- NOTE | 2018-12-01 00:39 | REPVR ---
PROCEDURE INFORMATION: Exam: CT Angiography Chest With Contrast Exam date and time: 11/30/2018 11:35 PM Clinical history: 23 years old, female; Chest pain; Type not specified; Patient HX: HX pe; Additional info: Cp TECHNIQUE: Imaging protocol: Computed tomographic angiography of the chest with intravenous contrast. 3D rendering: MIP reconstructed images were created and reviewed. Radiation optimization: All CT scans at this facility use at least one of these dose optimization techniques: automated exposure control; mA and/or kV adjustment per patient size (includes targeted exams where dose is matched to clinical indication); or iterative reconstruction. Contrast material: ISO; Contrast volume: 75 ml; Contrast route: AC; COMPARISON: CT ANGIO CHEST 04/22/2018 1:13 AM FINDINGS: Pulmonary arteries: The main pulmonary artery measures 22 mm. No pulmonary embolism is identified. Aorta: The ascending thoracic aorta measures 24 mm. Lungs: Unremarkable. No consolidation. No masses. Pleural space: Unremarkable. No pneumothorax. No pleural effusion. Heart: Unremarkable. No cardiomegaly. No pericardial effusion. Mediastinum: There is soft tissue conforming to the anterior mediastinum consistent with residual thymic tissue. Gallbladder and bile ducts: The gallbladder is contracted with no stones. Lymph nodes: Unremarkable. No enlarged lymph nodes. Bones/joints: Unremarkable. No acute fracture. Soft tissues: Unremarkable. IMPRESSION: Negative CTA chest without change from 04/22/2018. No acute interval pulmonary embolism is identified. Electronically signed by: Levy Sanchez On 12/01/2018 00:39:08 AM
[2018-12-01 00:50] VITALS: BP 94/50
[2018-12-01] MEDS ORDERED: KETO10TAB PO (00:55)
--- NOTE | 2018-12-01 01:07 | ECGEPIP ---
[facility] - ED Test Date: 2018-11-30 Pat Name: LINDA BARNES Department: Room: - Gender: Female Osteopathy Doctor: JMita : 1995 Requested By: JUAN DYER Order Number: [id number] Reading MD: Bird Pritchett Measurements Intervals [place] Rate: 82 P: 67 [place]: 143 QRS: 32 QRSD: 86 T: 66 QT: 358 QTc: 419 Interpretive Statements SINUS RHYTHM WITH SINUS ARRHYTHMIA Incomplete right bundle branch block Similar to tracing done 10-20-17 but with decreased rate Electronically Signed on 12-01-2018 1:06:55 EDT by Bird Pritchett
== END 2018-12-01 01:09 | disposition home or self-care (01) ==
LOC: M ED 22:21
DX: R09.1 Pleurisy (principal); J45.909 Unspecified asthma, uncomplicated; G43.909 Migraine, unspecified, not intractable, without status migrainosus; Z86.711 Personal history of pulmonary embolism; Z91.018 Allergy to other foods; Z91.013 Allergy to seafood
CPT/HCPCS: 36415; 71275; 80048; 82550; 82553; 84484; 84703; 85025; 85610; 85730; 93005; 96374; 96375; 99284; J1100; J1885; Q9967

== ENCOUNTER 2019-05-10 23:41 | Emergency (ER) | payer OTHER ==
[~2019-05-10] VITALS: Ht 157.5 cm; Wt 60.5 kg
[~2019-05-10 23:41] MED LIST changes: -EQ N PO; +KETO10TAB PO; +SENN-120 PO; -SERT-155 PO; +SERT50TA29 PO
[2019-05-11] MEDS ORDERED: CLAR10CA3 PO (00:30)
[2019-05-11] MEDS ORDERED: NS 1,000 ML IV ONE (02:15)
[2019-05-11 02:30] LABS: BASO # 0.1 10^3/uL (0.0-0.2); BASO % 0.7 % (0.0-1.0); EOS # 0.1 10^3/uL (0.0-0.5); EOS % 1.2 % (0.0-3.0); HEMATOCRIT 40.4 % (36.0-47.0); HEMOGLOBIN 13.1 g/dl (12.0-15.5); LYMPH % 35.3 % (24.0-44.0); MEAN CORPUSCULAR HGB CONC 32.4 g/dl (32.0-36.5); MEAN CORPUSCULAR VOLUME 86.3 fl (80.0-96.0); MONO # 1.2 10^3/uL (0.0-0.8); MONO % 10.7 % (0.0-5.0); NEUTROPHILS # 5.8 10^3/uL (1.5-8.5); NEUTROPHILS % 51.8 % (36.0-66.0); PLATELET COUNT, AUTOMATED 366 10^3/uL (150-450); RED BLOOD COUNT 4.68 10^6/uL (4.00-5.40); WHITE BLOOD COUNT 11.2 10^3/uL (4.0-10.0)
[2019-05-11 02:57] LABS: CK-MB VALUE MASS < 1.0 NG/ML (<3.6); CPK CREATINE PHOSPHOKINASE 86 U/L (26-192); MB/CK RELATIVE INDEX 1.16 (< OR =4); TROPONIN I < 0.02 NG/ML (< 0.10)
[2019-05-11 03:01] VITALS: BP 108/69
--- NOTE | 2019-05-11 06:52 | REP ---
Clinical: Chest pain . Comparison: 09/18/2018 . Technique: PA and lateral. Findings: The mediastinum and cardiac silhouette are normal. The lung bell are clear and without acute consolidation, effusion, or pneumothorax. The skeletal structures are intact and normal. Impression: 1. No acute cardiopulmonary process. Electronically Signed by Humphrey Woo MD 05/11/2019 06:43 A
--- NOTE | 2019-05-11 20:12 | ECGEPIP ---
[facility] - ED Test Date: 2019-05-11 Pat Name: LINDA BARNES Department: Room: - Gender: Female Enzyme Chemist: SB : 1995 Requested By: JORGE LUIS Cortez PA-C Order Number: [id number] Reading MD: Jona Tapia Measurements Intervals [place] Rate: 63 P: 62 [place]: 145 QRS: 38 QRSD: 80 T: 45 QT: 386 QTc: 396 Interpretive Statements SINUS RHYTHM Electronically Signed on 05-11-2019 20:11:44 EDT by Joan Tapia
== END 2019-05-11 03:23 | disposition home or self-care (01) ==
LOC: M ED 23:41
DX: R07.89 Other chest pain (principal); L03.011 Cellulitis of right finger; R42 Dizziness and giddiness; R06.02 Shortness of breath; M79.89 Other specified soft tissue disorders; J45.909 Unspecified asthma, uncomplicated; Z86.711 Personal history of pulmonary embolism; Z91.018 Allergy to other foods; Z91.013 Allergy to seafood; Z79.899 Other long term (current) drug therapy

== ENCOUNTER 2019-05-17 13:39 | Emergency (ER) | payer OTHER ==
[~2019-05-17] VITALS: Ht 157.5 cm; Wt 61.0 kg
[~2019-05-17 13:39] MED LIST changes: +CLAR10CA3 PO
[2019-05-17] MEDS ORDERED: ALBUTEROL 90 MCG/ACT 8GM HFA INHALER INH ONE (14:15)
[2019-05-17 14:33] LABS: BASO # 0.1 10^3/uL (0.0-0.2); BASO % 0.7 % (0.0-1.0); EOS # 0.1 10^3/uL (0.0-0.5); EOS % 0.8 % (0.0-3.0); HEMATOCRIT 38.9 % (36.0-47.0); HEMOGLOBIN 12.6 g/dl (12.0-15.5); LYMPH % 26.8 % (24.0-44.0); MEAN CORPUSCULAR HEMOGLOBIN 27.8 pg (27.0-33.0); MEAN CORPUSCULAR HGB CONC 32.4 g/dl (32.0-36.5); MEAN CORPUSCULAR VOLUME 85.9 fl (80.0-96.0); MONO # 0.7 10^3/uL (0.0-0.8); NEUTROPHILS # 4.6 10^3/uL (1.5-8.5); NEUTROPHILS % 62.6 % (36.0-66.0); PLATELET COUNT, AUTOMATED 331 10^3/uL (150-450); RED BLOOD COUNT 4.53 10^6/uL (4.00-5.40); WHITE BLOOD COUNT 7.3 10^3/uL (4.0-10.0)
[2019-05-17 15:24] LABS: ALT/SGPT 40 U/L (12-78); BILIRUBIN,DIRECT 0.2 MG/DL (0.0-0.2); CK-MB VALUE MASS < 1.0 NG/ML (<3.6); CPK CREATINE PHOSPHOKINASE 79 U/L (26-192); LIPASE 112 U/L (73-393); MB/CK RELATIVE INDEX 1.27 (< OR =4); NT-PRO BNP 39 PG/ML (<125); TOTAL PROTEIN 7.6 GM/DL (6.4-8.2); TROPONIN I < 0.02 NG/ML (< 0.10)
[2019-05-17] MEDS ORDERED: LEVAINH INH (16:26)
[2019-05-17 16:31] VITALS: BP 112/64
--- NOTE | 2019-05-18 05:38 | ECGEPIP ---
[facility] - ED Test Date: 2019-05-17 Pat Name: LINDA BARNES Department: Room: - Gender: Female Petroleum Geologist: MARKEL : 1995 Requested By: ABILIO RAYMOND PA-C Order Number: [id number] Reading MD: Ken Gonzalez Measurements Intervals [place] Rate: 92 P: 71 SD: 151 QRS: 36 QRSD: 93 T: 61 QT: 358 QTc: 445 Interpretive Statements SINUS RHYTHM INCOMPLETE RIGHT BUNDLE BRANCH BLOCK NONSPECIFIC T-WAVE ABNORMALITY Electronically Signed on 05-18-2019 5:38:43 EDT by Ken Gonzalez
== END 2019-05-17 16:37 | disposition home or self-care (01) ==
LOC: M ED 13:39
DX: R07.89 Other chest pain (principal); R06.02 Shortness of breath; I45.19 Other right bundle-branch block; G43.909 Migraine, unspecified, not intractable, without status migrainosus; J45.909 Unspecified asthma, uncomplicated; F41.9 Anxiety disorder, unspecified; F32.9 Major depressive disorder, single episode, unspecified; Z86.711 Personal history of pulmonary embolism; Z82.49 Family history of ischemic heart disease and other diseases of the circulatory system; Z79.899 Other long term (current) drug therapy; Z91.018 Allergy to other foods; Z91.013 Allergy to seafood

== ENCOUNTER 2019-07-13 22:51 | Emergency (ER) | payer OTHER ==
[~2019-07-13] VITALS: Ht 157.5 cm; Wt 59.1 kg
[~2019-07-13 22:51] MED LIST changes: +LEVAINH INH
[2019-07-13] MEDS ORDERED: AMOX875T2 PO (23:06)
[2019-07-13 23:38] LABS: APPEARANCE, URINE CLEAR (CLEAR); BACTERIA, URINE AUTO NEGATIVE (NEGATIVE); BILIRUBIN, URINE AUTO NEGATIVE (NEGATIVE); BLOOD, URINE BLOOD NEGATIVE (NEGATIVE); COLOR, URINE COLORLESS (YELLOW); GLUCOSE, URINE (UA) AUTO NEGATIVE (NEGATIVE); KETONE, URINE AUTO NEGATIVE (NEGATIVE); LEUKOCYTE ESTERASE, URINE AUTO TRACE (NEGATIVE); NITRITE, URINE AUTO NEGATIVE (NEGATIVE); PROTEIN, URINE AUTO NEGATIVE (NEGATIVE); RBC, URINE AUTO 1 /HPF (0-3); SPECIFIC GRAVITY URINE AUTO 1.002 (1.002-1.035); SQUAMOUS EPITHELIAL CELL UR AU 2 /HPF (0-6); UROBILINOGEN, URINE AUTO 0.2 mg/dL (0.0-2.0); WBC, URINE AUTO 1 /HPF (0-3)
[2019-07-13 23:43] LABS: HEMATOCRIT 37.4 % (36.0-47.0); HEMOGLOBIN 12.3 g/dl (12.0-15.5); MEAN CORPUSCULAR HGB CONC 32.9 g/dl (32.0-36.5); PLATELET COUNT, AUTOMATED 348 10^3/uL (150-450); WHITE BLOOD COUNT 10.2 10^3/uL (4.0-10.0)
[2019-07-14 00:02] LABS: ALBUMIN 3.9 GM/DL (3.2-5.2); ALT/SGPT 38 U/L (12-78); BILIRUBIN,TOTAL 0.6 MG/DL (0.2-1.0); BLOOD UREA NITROGEN 13 MG/DL (7-18); CALCIUM LEVEL 8.5 MG/DL (8.5-10.1); CARBON DIOXIDE LEVEL 26 MEQ/L (21-32); CHLORIDE LEVEL 105 MEQ/L (98-107); CREATININE FOR GFR 0.69 MG/DL (0.55-1.30); GLOMERULAR FILTRATION RATE > 60.0 (>60); GLUCOSE, FASTING 79 MG/DL (70-100); SODIUM LEVEL 139 MEQ/L (136-145); TOTAL PROTEIN 7.7 GM/DL (6.4-8.2)
[2019-07-14 00:10] LABS: HCG, SERUM QUALITATIVE POSITIVE (NEGATIVE)
[2019-07-14 00:34] LABS: HCG, SERUM QUANTITATIVE 159 MIU/ML
--- NOTE | 2019-07-14 02:13 | REPVR ---
PROCEDURE INFORMATION: Exam: US First Trimester, Transabdominal and US , Transvaginal Exam date and time: 07/14/2019 1:50 AM Age: 24 years old Clinical indication: complicated by abdominal or pelvic pain; Left lower quadrant; First trimester; Gestational age or lmp: 06/15/19; ; Additional info: Llq pain, hcg+, R/O ovary cyst, ectopic TECHNIQUE: Imaging protocol: Real-time transabdominal obstetrical ultrasound of the maternal pelvis and a first trimester , less than 14 weeks 0 days, with image documentation. Transvaginal imaging was used for better evaluation of the fetus and adnexa. COMPARISON: No relevant prior studies available. FINDINGS: Gestation: No definitive intrauterine gestational sac is visualized. Ectopic cannot be excluded. Heart rate: N/A. Placenta: N/A. Amniotic fluid: N/A. BIOMETRY: Estimated gestational age: N/A. MATERNAL: Uterus: The uterus measures 12.3 x 5.7 x 5.9 cm. The endometrial stripe measures 1.5 cm, which is thickened. There is abnormal increased echogenicity within the anterior uterine wall. This measures approximately 2.8 x 2.1 x 1.9 cm. Adenomyosis is considered, although a uterine mass cannot be excluded. Cervix: Unremarkable, as visualized. Right adnexa: The right ovary measures 2.6 x 1.8 x 3.0 cm. There is preservation of blood flow within the right ovary. Small follicles are visualized within the right ovary. Left adnexa: The left ovary measures 4.1 x 2.5 x 2.5 cm. There is preservation of blood flow within the left ovary. Within the left ovary, there is a complex area of heterogeneous ultrasonography removed during 2.8 x 2.1 x 1.9 cm. Posterior acoustic enhancement is visualized, suggestive of a cystic component. Intraperitoneal: No intraperitoneal free fluid. IMPRESSION: 1. No definitive intrauterine gestational sac is visualized. Ectopic cannot be excluded. Correlation with serial hCG levels and follow-up ultrasonography are recommended. 2. There is abnormal increased echogenicity within the anterior uterine wall. This measures approximately 2.8 x 2.1 x 1.9 cm. Adenomyosis is considered, although a uterine mass cannot be excluded. 3. The endometrial stripe measures 1.5 cm, which is thickened. 4. Within the left ovary, there is a complex area of heterogeneous ultrasonography removed during 2.8 x 2.1 x 1.9 cm. Posterior acoustic enhancement is visualized, suggestive of a cystic component. Follow-up ultrasonography recommended. Electronically signed by: Kev Gonzalez On 07/14/2019 02:13:14 AM
[2019-07-14] MEDS ORDERED: METAL LOCK LOOP XX ONE (02:37)
[2019-07-14 02:42] VITALS: BP 105/55
== END 2019-07-14 02:46 | disposition home or self-care (01) ==
LOC: M ED 22:51
DX: N83.202 Unspecified ovarian cyst, left side (principal); R93.89 Abnormal findings on diagnostic imaging of other specified body structures; Z34.01 Encounter for supervision of normal first pregnancy, first trimester; Z91.018 Allergy to other foods

== ENCOUNTER → 2019-08-05 | Outpatient (CLI) | payer OTHER ==
[~2019-08-05] MED LIST changes: +AMOX875T2 PO
--- NOTE | 2019-08-05 12:40 | REP ---
TRANSVAGINAL OB ULTRASOUND: Transvaginal ultrasound of the pelvis is performed. There is a single living intrauterine gestation with an estimated gestational age of 7 weeks 1 day based on crown-rump length of 10 mm, EDC 03/22/2020. heart rate 153 beats per minute. There is no subchorionic hemorrhage. Complex cystic structure in the left ovary probably represents a complex corpus luteum 1.3 cm in diameter. With duplex Doppler evaluation, there is no evidence of ovarian torsion bilaterally. Once again in the anterior myometrium there is a 4.7 cm area of heterogeneous mixed echogenicity which may represent fibroid or adenomyosis. Electronically Signed by Leo Medina MD 08/10/2019 06:00 P
== END ==
LOC: M RAD 10:47
PROVIDERS: ATTEND Obstetrics & Gynecology
DX: O26.91 Pregnancy related conditions, unspecified, first trimester (principal); Z3A.01 Less than 8 weeks gestation of pregnancy; R10.9 Unspecified abdominal pain

== ENCOUNTER 2019-08-10 16:40 | Emergency (ER) | payer OTHER ==
[~2019-08-10] VITALS: Ht 157.5 cm; Wt 60.6 kg
[2019-08-10] MEDS ORDERED: LOVE1INJ SC (16:48)
--- NOTE | 2019-08-10 18:14 | REPVR ---
PROCEDURE INFORMATION: Exam: US Duplex Lower Extremity Veins, Bilateral Exam date and time: 08/10/2019 5:57 PM Age: 24 years old Clinical indication: Other: Chest pain earlier in the day; Additional info: chest pain TECHNIQUE: Imaging protocol: Real-time duplex ultrasound of the extremities with 2-D mason scale, color Doppler flow and spectral waveform analysis with image documentation. Complete exam focused on the bilateral lower extremity veins. COMPARISON: No relevant prior studies available. FINDINGS: Right deep veins: Unremarkable. The common femoral, femoral, proximal profunda femoral and popliteal veins are patent without thrombus. Normal Doppler waveforms. Normal compressibility and/or augmentation response. Right superficial veins: Saphenofemoral junction is patent without thrombus. Left deep veins: Unremarkable. The common femoral, femoral, proximal profunda femoral and popliteal veins are patent without thrombus. Normal Doppler waveforms. Normal compressibility and/or augmentation response. Left superficial veins: Saphenofemoral junction is patent without thrombus. Soft tissues: Unremarkable. IMPRESSION: No DVT of bilateral lower extremities. Electronically signed by: Hussain Ackerman On 08/10/2019 18:14:27 PM
[2019-08-10 18:28] LABS: BASO # 0.1 10^3/uL (0.0-0.2); BASO % 0.5 % (0.0-1.0); EOS # 0.1 10^3/uL (0.0-0.5); EOS % 0.8 % (0.0-3.0); HEMATOCRIT 36.3 % (36.0-47.0); HEMOGLOBIN 11.8 g/dl (12.0-15.5); LYMPH # 2.4 10^3/uL (1.5-5.0); LYMPH % 21.9 % (24.0-44.0); MEAN CORPUSCULAR HEMOGLOBIN 28.4 pg (27.0-33.0); MEAN CORPUSCULAR HGB CONC 32.5 g/dl (32.0-36.5); MEAN CORPUSCULAR VOLUME 87.5 fl (80.0-96.0); MONO % 9.1 % (0.0-5.0); NEUTROPHILS # 7.5 10^3/uL (1.5-8.5); NEUTROPHILS % 67.3 % (36.0-66.0); PLATELET COUNT, AUTOMATED 320 10^3/uL (150-450); RED BLOOD COUNT 4.15 10^6/uL (4.00-5.40); WHITE BLOOD COUNT 11.1 10^3/uL (4.0-10.0)
[2019-08-10 18:30] VITALS: BP 118/65
--- NOTE | 2019-08-10 21:46 | ECGEPIP ---
[facility] - ED Test Date: 2019-08-10 Pat Name: LINDA BARNES Department: Room: - Gender: Female Utilization Review Rn: jero : 1995 Requested By: Joan Tapia Order Number: [id number] Reading MD: Ken Gonzalez Measurements Intervals [place] Rate: 68 P: 64 [place]: 145 QRS: 11 QRSD: 84 T: 48 QT: 371 QTc: 396 Interpretive Statements SINUS RHYTHM POSSIBLE INCOMPLETE RIGHT BUNDLE BRANCH BLOCK SIMILAR TO 05/17/19 Electronically Signed on 08-10-2019 21:46:28 EDT by Ken Gonzalez
--- NOTE | 2019-08-10 22:51 | REP ---
REASON: Chest pain. COMPARISON: 05/11/2019 FINDINGS: The technique utilized in obtaining the radiograph has magnified the cardiac silhouette and accentuated the interstitial markings. The superior mediastinal structures are midline. The cardiac silhouette is unremarkable in size, shape, and position. The diaphragmatic surfaces of the lungs are regular, and the costophrenic angles are clear. The pulmonary bell are clear. The imaged osseous structures are intact. IMPRESSION: There is no acute cardiopulmonary disease. Electronically Signed by Bandar Matta DO 08/11/2019 01:22 P
== END 2019-08-10 18:48 | disposition home or self-care (01) ==
LOC: M ED 16:40
DX: O99.411 Diseases of the circulatory system complicating pregnancy, first trimester (principal); R07.9 Chest pain, unspecified; Z91.018 Allergy to other foods; Z91.013 Allergy to seafood; Z3A.01 Less than 8 weeks gestation of pregnancy; Z79.899 Other long term (current) drug therapy

== ENCOUNTER 2019-09-26 16:35 | Emergency (ER) | payer OTHER ==
[2019-11-11 14:04] LABS: APPEARANCE, URINE CLEAR (CLEAR); BACTERIA, URINE AUTO NEGATIVE (NEGATIVE); BILIRUBIN, URINE AUTO NEGATIVE (NEGATIVE); BLOOD, URINE BLOOD 1+ (NEGATIVE); COLOR, URINE YELLOW (YELLOW); GLUCOSE, URINE (UA) AUTO NEGATIVE (NEGATIVE); KETONE, URINE AUTO NEGATIVE (NEGATIVE); LEUKOCYTE ESTERASE, URINE AUTO NEGATIVE (NEGATIVE); NITRITE, URINE AUTO NEGATIVE (NEGATIVE); PROTEIN, URINE AUTO NEGATIVE (NEGATIVE); RBC, URINE AUTO 3 /HPF (0-3); SPECIFIC GRAVITY URINE AUTO 1.006 (1.002-1.035); SQUAMOUS EPITHELIAL CELL UR AU 0 /HPF (0-6); UROBILINOGEN, URINE AUTO 0.2 mg/dL (0.0-2.0); WBC, URINE AUTO 0 /HPF (0-3)
[2019-11-11 17:01] LABS: BASO % 0.4 % (0.0-1.0); EOS # 0.1 10^3/uL (0.0-0.5); EOS % 0.8 % (0.0-3.0); HEMATOCRIT 35.3 % (36.0-47.0); HEMOGLOBIN 11.6 g/dl (12.0-15.5); MEAN CORPUSCULAR HEMOGLOBIN 28.4 pg (27.0-33.0); MEAN CORPUSCULAR HGB CONC 32.9 g/dl (32.0-36.5); MEAN CORPUSCULAR VOLUME 86.5 fl (80.0-96.0); MONO # 0.8 10^3/uL (0.0-0.8); MONO % 9.1 % (0.0-5.0); NEUTROPHILS # 6.1 10^3/uL (1.5-8.5); NEUTROPHILS % 67.3 % (36.0-66.0); PLATELET COUNT, AUTOMATED 300 10^3/uL (150-450); RED BLOOD COUNT 4.08 10^6/uL (4.00-5.40)
[2019-12-08 15:15] LABS: ALBUMIN 3.3 GM/DL (3.2-5.2); ALT/SGPT 20 U/L (12-78); BILIRUBIN,TOTAL 0.6 MG/DL (0.2-1.0); BLOOD UREA NITROGEN 5 MG/DL (7-18); CALCIUM LEVEL 8.3 MG/DL (8.5-10.1); CARBON DIOXIDE LEVEL 24 MEQ/L (21-32); CHLORIDE LEVEL 107 MEQ/L (98-107); CREATININE FOR GFR 0.63 MG/DL (0.55-1.30); GLOMERULAR FILTRATION RATE > 60.0 (>60); GLUCOSE, FASTING 95 MG/DL (70-100); HCG, SERUM QUANTITATIVE 40368 MIU/ML; POTASSIUM SERUM 3.8 MEQ/L (3.5-5.1); SODIUM LEVEL 136 MEQ/L (136-145); TOTAL PROTEIN 6.8 GM/DL (6.4-8.2)
== END 2019-09-26 18:08 | disposition home or self-care (01) ==
LOC: M ED 16:35
DX: O20.9 Hemorrhage in early pregnancy, unspecified (principal); Z79.899 Other long term (current) drug therapy; Z91.018 Allergy to other foods; Z3A.14 14 weeks gestation of pregnancy; Z86.711 Personal history of pulmonary embolism

== ENCOUNTER 2019-11-22 19:18 | Emergency (ER) | payer OTHER ==
[~2019-11-22] VITALS: Ht 154.9 cm; Wt 67.2 kg
[2019-11-22] MEDS ORDERED: PROAAER10 INH (19:32)
[2019-11-22] MEDS ORDERED: ACET160L16 PO (19:32)
[2019-11-22] MEDS ORDERED: TUMS500C PO (19:33)
[2019-11-22 22:51] VITALS: BP 98/52
== END 2019-11-22 23:03 | disposition home or self-care (01) ==
LOC: M ED 19:18
DX: O99.512 Diseases of the respiratory system complicating pregnancy, second trimester (principal); J06.9 Acute upper respiratory infection, unspecified; O98.512 Other viral diseases complicating pregnancy, second trimester; B34.9 Viral infection, unspecified; Z79.899 Other long term (current) drug therapy; Z3A.22 22 weeks gestation of pregnancy

== ENCOUNTER 2020-03-18 08:23 | Inpatient (IN) | payer OTHER ==
[~2020-03-18] VITALS: Ht 154.9 cm; Wt 77.3 kg
[2020-03-18] VITALS (12 sets, daily range): BP systolic 109–134; BP diastolic 64–79
[~2020-03-18 08:23] MED LIST changes: +ACET160L16 PO
[2020-03-18] MEDS ORDERED: HEPA1INJ6 IV (08:58)
[2020-03-18 10:50] LABS: HEMATOCRIT 26.4 % (36.0-47.0); HEMOGLOBIN 7.7 g/dl (12.0-15.5); MEAN CORPUSCULAR HEMOGLOBIN 21.6 pg (27.0-33.0); MEAN CORPUSCULAR HGB CONC 29.2 g/dl (32.0-36.5); MEAN CORPUSCULAR VOLUME 73.9 fl (80.0-96.0); PLATELET COUNT, AUTOMATED 314 10^3/uL (150-450); RED BLOOD COUNT 3.57 10^6/uL (4.00-5.40); WHITE BLOOD COUNT 11.7 10^3/uL (4.0-10.0)
[2020-03-18] MEDS ORDERED: LACTATED RINGER'S 1000 ML IV ONE (12:00)
[2020-03-18] MEDS ORDERED: miSOPROStol 50MCG 1/2 TABLET PO ONE (12:00)
[2020-03-18] MEDS: LR 1,000 ML IV SCH (12:17)
--- NOTE | 2020-03-18 12:41 | HPEPDOC ---
Obstetrical History & Physical General Date of Admission Mar 18, 2020 at 08:23 Primary Care Physician: Babak Rosario MD History of Present Illness 24 YO AT 39 WEEKS IOL WITH HEPARIN WINDOW HISTORY PE PRE DELIVERY LAST Chief Complaint: Induction of labor Information Provided By: Patient Age: 24 : 2 Term: 1 Pre-term: 0 Abortions: 0 Livin Care Care: Good Care Number of Visits: 10 Dating Final EDC: Mar 25, 2020 Final EDC for Daily Update: Mar 25, 2020 Final EDC by: LMP LMP: Jun 19, 2019 1st Trimester Date: Aug 05, 2019 Weeks + Days: 7.1 Estimated Date of Confinement: Mar 25, 2020 EGA at Admission: 39 Antepartum Course Diagnos(e)s 39 WEEKS FOR IOL WITH HEPATIN WINDOW Height (inches): 52 Pre- weight (lbs.): 133 Admission Weight (lbs.): 170 Change in Weight (lbs.): 47 Past Medical History Past Obstetrical History : Past Obstetrical History: Multigravida Date of Delivery: Dec 10, 2017 Type of Delivery: Spontaneous Vaginal Del. 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 TRUCKER History: No pertinent history Past Medical History Medical History HISTORY PE LAST AND THIS ATRIAL FIB AND VENTRICULAR TACHYCARDIA Surgical History: Other (WISDOM TEETH) Family History Significant Family History: Heart disease Social History Marital Status: Family situation: Spouse/partner home Psychosocial History: No pertinent psych hx * Smoker: non-smoker Alcohol: Denies Drugs: denies Abuse Violence Screening Have you been hit/kicked/slapp: No Have you been sexually assault: No Imunizations Tdap status: current Influenza Status: current Allergies Coded Allergies: SEAFOOD (Verified Allergy, Severe, anaphylaxis, 09/18/18) CILANTRO (Verified Allergy, Intermediate, throat burning, 09/18/18) pineapple (Verified Allergy, Intermediate, throat swelling, 09/18/18) Coconut (Verified Allergy, Unknown, ITCHY, 03/18/20) garlic (Verified Allergy, Unknown, 05/10/19) Medications Scheduled Calcium Carbonate (Tums) 200 Mg Tab.chew, 2 TAB PO Q4H for HEARTBURN Heparin Sodium,Porcine/Pf (Heparin 3 Unit/3 ml (1/ml) Syr) 1 Unit/1 Ml Syringe, 1 UNIT IV BID Physical Examination Physical Examination GENERAL: Alert and oriented times three. BREAST: . ABDOMEN: Gravid and non-tender to touch. FETUS: Is vertex (VTX) by sterile vaginal examination (SVE), fetus is vertex (VTX) by Jayesh. HEART RATE: Regular rate and rhythm. LUNGS: Clear to auscultation (CTA). EXTREMITIES: No edema. No clonus. Deep tendon reflexes (DTRs) NORMAL Other physical findings SF HEIGHT 39 VERTEX BOWEL SOUNDS NORMAL NO EDEMA REFLEXES NORMAL Vital Signs/I&O Vital Signs Date Time Temp Pulse Resp B/P (MAP) Pulse Ox O2 Delivery O2 Flow Rate FiO2 03/18/20 09:11 98.0 115 20 117/73 (88) Laboratory Data 24H LABS Laboratory Tests 2 03/18/20 08:29: Serology Scanned Report Hepatitis B Testing 03/18/20 10:26: Nucleated Red Blood Cells % (auto) 0.4H CBC/BMP Laboratory Tests 03/18/20 10:26 Pertinent Laboratoy Data Blood Type: A+ RBC Antibody Screen: Negative HIV: Negative Hepatitis B: Negative Rapid Plasma Reagin: Nonreactive Rubella: Immune Varicella: Immune Chlamydia/Gonorrhea: Negative Group B Streptococcus: Negative Cystic Fibrosis: Negative Anatomy Ultrasound Placenta Location: Anterior Normal Anatomy: Yes Placenta Previa: No Steroid Therapy Steroid Therapy: No Vaginal Examination Dilation: 1cm Effacement: 50% Station: -3 Cervical Consistency: Firm Cervical Position: Posterior Presentation: Cephalic presentation Assessment Variability: Moderate Accelerations: Present Decelerations: None Tocometer Contractions: No Assessment/Plan Assessment 24 year-old 2 para (P 1 at 39 weeks by 7.5 -week ultrasound. Presents to Labor and Delivery (L&D) FOR IOL WITH HEPARIN WINDOW . Plan Admit and orient. 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 Diet: KAY Group B Streptococcus (GBS) [negative]. Labs and intravenous (IV) per unit protocol. Counseled on Pitocin and induction of labor (IOL). Lactated Ringers (LR): Bolus 1000 mL, then at 125 mL/hr. Anticipate [normal spontaneous delivery ()]. C-S as appropriate. REVIEWED IOL RISK HEMORRHAGE INFECTION RISK INCREASE CS NRFHT FAILURE TO DELIVER VAGINALLY INCREASE RISK OF LACERATIONS NEED FOR REPAIR OF VAGINA URETHERA BOWEL OR BLADDER . RISK OF ADMISSION OF BABY TO NICU. RISK OF USES F ORCEPS VACUUM WITH RISK OF HEMATOMA SUBDURAL LACERATIONS Labor and Delivery Counseling PLAN OF CARE START WITH CYTOTEC WHEN FAVORABLE USE OF COOK'S CATHETER AND PITOCIN, EPIDURAL NEEDED SAFE TO PROCEED PATIENT EXPRESSED UNDERSTANDING OF PLAN OF CARE Babak Rosario MD Mar 18, 2020 12:38
[2020-03-18] MEDS ORDERED: LR 1,000 ML IV SCH (20:56)
[2020-03-18] MEDS ORDERED: OXYTOCIN DRIP 30 UNITS in IV 1 EA IV SCH (21:00)
[2020-03-19] VITALS (32 sets, daily range): BP systolic 98–142; BP diastolic 54–87
[2020-03-19] MEDS ORDERED: FENTANYL 2MCG/ML ROPIVACAINE 0.2% IN 0.9% NACL 100ML IVBAG As Ordered ONE (00:27)
[2020-03-19] MEDS: LR 1,000 ML IV SCH (01:17)
[2020-03-19] MEDS ORDERED: EPIDURAL/PCA KEYS XX PRN (02:15)
[2020-03-19] MEDS ORDERED: ONDANSETRON 4MG/2ML VIAL IV PRN (02:15)
[2020-03-19] MEDS ORDERED: NALOXONE INJ 0.4MG/1ML VIAL (J2310 PER 1MG) IV PRN (02:15)
[2020-03-19] MEDS ORDERED: FENTANYL/ROPIVACAINE/NACL BAG 100 ML EPIDURAL SCH (02:15)
[2020-03-19] MEDS ORDERED: diphenhydrAMINE 50MG/ML VIAL (J1200) IV PRN (02:15)
[2020-03-19] MEDS ORDERED: LACTATED RINGER'S 1000 ML IV PRN (02:15)
[2020-03-19] MEDS ORDERED: ePHEDrine SULFATE 25 MG/5 ML(5MG/ML) SYRINGE IV PRN (02:15)
[2020-03-19] MEDS ORDERED: EPIDURAL COMMENT XX SCH (02:15)
[2020-03-19] MEDS ORDERED: REFRIGERATOR IV KEYS XX PRN (02:15)
--- NOTE | 2020-03-19 03:22 | IPNPDOC ---
Text Note Date of Service The patient was seen on 03/19/20. NOTE 03/19/2020 [address] CONTRACTIONS SPACED OUT AUGMENT WITH PITOCIN CATEGORY 1 STRIP 5 CM ANTERIOR 805 EFFACED -3 STATION AROM CLEAR FLUID VETREX OT LEFT PITOCIN AT 2 MUNITS SAFE TO PROCEED VS,Fishbone, I+O VS, Fishbone, I+O Laboratory Tests 03/18/20 10:26 Vital Signs Date Time Temp Pulse Resp B/P (MAP) Pulse Ox O2 Delivery O2 Flow Rate FiO2 03/19/20 01:29 88 16 108/59 (75) 03/18/20 19:14 97.9 I&O- Last 24 Hours up to 6 AM 03/19/20 06:00 Intake Total 1787 ml Output Total 350 ml Balance 1437 ml Babak Rosario MD Mar 19, 2020 03:21
[2020-03-19 07:38] LABS: CORD GAS ABE A -4.6; CORD GAS HCO3 A 20.5 MEQ/L; CORD GAS O2 SAT A 58.2 %; CORD GAS PCO2 A 38.6 mmHg; CORD GAS PH A 7.344 UNITS; CORD GAS PO2 A 24.6 mmHg; CORD GAS SBC A 19.7 MEQ/L; CORD GAS TCO2 A 21.7 MEQ/L
[2020-03-19 07:39] LABS: CORD GAS ABE V -5.2; CORD GAS O2 SAT V 54.4 %; CORD GAS PCO2 V 33.7 mmHg; CORD GAS PH V 7.37 UNITS; CORD GAS PO2 V 22.9 mmHg; CORD GAS SBC V 19.2 MEQ/L; CORD GAS TCO2 V 20.1 MEQ/L
[2020-03-19] MEDS ORDERED: ANUSOL HC CREAM 30GM TOP PRN (08:15)
[2020-03-19] MEDS ORDERED: OXYTOCIN DRIP 30 UNITS in IV 1 EA IV ONE (08:15)
[2020-03-19] MEDS ORDERED: MEASLES,MUMPS,RUBELLA VACCINE INJ (MMR-II) (90707) SC SCH (08:15)
[2020-03-19] MEDS ORDERED: METHYLERGONOVINE MALEATE 0.2 MG TAB PO PRN (08:15)
[2020-03-19] MEDS ORDERED: RHOGAM 300 MCG (1500 IU) INJ (J2790) IM SCH (08:15)
[2020-03-19] MEDS ORDERED: DOCUSATE SODIUM 100MG CAPSULE PO PRN (08:15)
[2020-03-19] MEDS ORDERED: MOM 30ML SUSPENSION UDC PO PRN (08:15)
[2020-03-19] MEDS ORDERED: OXYTOCIN INJ 10 UNITS/ML VIAL (J2590) IV ONE (08:15)
[2020-03-19] MEDS ORDERED: IBUPROFEN 600MG TAB PO PRN (08:15)
[2020-03-19] MEDS ORDERED: BENZOCAINE 20% HEMORRHOIDAL OINTMENT 28GM TUBE TOP PRN (08:15)
[2020-03-19] MEDS: PRENATAL VITAMINS CHEWABLE TABLET PO SCH (10:09)
[2020-03-19] MEDS: ACETAMINOPHEN 500 MG TAB PO PRN (10:10)
[2020-03-19] MEDS: ACETAMINOPHEN TAB 650MG DOSE (2X325MG) PO PRN ×2 (10:25→18:32)
[2020-03-19] MEDS: ENOXAPARIN 40MG/0.4ML SYRINGE (J1650 PER 10MG) SC SCH (18:33)
--- NOTE | 2020-03-19 21:02 | DN ---
DELIVERY NOTE DATE OF DELIVERY: 03/19/2020 DESCRIPTION OF DELIVERY: This lady is a 24-year-old 2, para 1, who was admitted for induction of labor at 39 weeks, having a Heparin window. She has had a history of past pulmonary embolism with the last delivery or pre-delivery. She also has atrial fibrillation and ventricular tachycardia. She was seen by cardiology and cleared. She had an epidural in place and had a spontaneous vaginal delivery of a female weighing 8 pounds 5 ounces (3760 grams). Apgars 8 and 9 at one and five minutes respectively. terminal meconium very scant. Arterial pH 7.34, base excess -4.6; venous pH 7.37, base excess -5.2. Placenta delivered spontaneously thereafter with three-vessel cord. Membranes and tissues intact. The uterus contracted well under Pitocin. On examination, anterior, posterior and lateral skaggs were complete. Sphincter was tight. No evidence of tears or lacerations. Again, the uterus was well contracted under Pitocin. The patient and baby tolerating procedure well. HEATHER
[2020-03-20 06:00] VITALS: BP 107/70
[2020-03-20 07:48] LABS: HEMATOCRIT 26.5 % (36.0-47.0); HEMOGLOBIN 7.5 g/dl (12.0-15.5); MEAN CORPUSCULAR HEMOGLOBIN 21.2 pg (27.0-33.0); MEAN CORPUSCULAR HGB CONC 28.3 g/dl (32.0-36.5); MEAN CORPUSCULAR VOLUME 74.9 fl (80.0-96.0); PLATELET COUNT, AUTOMATED 279 10^3/uL (150-450); RED BLOOD COUNT 3.54 10^6/uL (4.00-5.40); WHITE BLOOD COUNT 22.8 10^3/uL (4.0-10.0)
--- NOTE | 2020-03-20 08:02 | IPN ---
PROGRESS NOTE DATE: 03/20/2020 SUBJECTIVE: This lady is a 24-year-old 2 now para 2, admitted at 39 weeks for induction of labor because of heparin window having a previous history of pulmonary embolism with the last . She also had atrial fib and V-tach cleared by cardiology. She had a spontaneous vaginal delivery of a female infant 8 pounds 5 ounces (3760 grams). Apgars of 8 and 9 at one and five minutes respectively. Arterial pH 7.34, base excess -4.6; venous pH 7.37, base excess -5.2. On her first day, she is feeling well. She is quite pale. Her admitting hemoglobin was 7.7, hematocrit 26.4, and platelets were 314,000. We are awaiting her CBC as of this morning. We discussed phlebitis, cystitis, mastitis, endometritis, cellulitis, diet, exercise, pain management; perineal, breast and wound care. OBJECTIVE: Presently blood pressure is 107/70, respirations 16, pulse 75, temperature 98.0. Uterus is 2 below. Lochia is moderate. Four quadrant bowel sounds are noted and the perineum is intact. She has no rashes, lesions, or pruritus. No arthralgia or myalgias. No complaint of joint pain. No cough, wheeze, shortness of breath, or dyspnea on exertion. No bruising. ASSESSMENT/PLAN: She has had her one dose of Lovenox 12 hours post delivery. She has medication at home to continue her Lovenox plus her medication. Plans are for discharge tomorrow morning. We are awaiting her CBC. As of 0600 this morning, the patient seems to be hemodynamically stable.
[2020-03-20 08:27] VITALS: BP 107/70
[2020-03-20] MEDS: ACETAMINOPHEN 500 MG TAB PO PRN (09:18)
[2020-03-20] MEDS: PRENATAL VITAMINS CHEWABLE TABLET PO SCH (09:18)
[2020-03-20 18:00] VITALS: BP 111/69
[2020-03-20] MEDS: ENOXAPARIN 40MG/0.4ML SYRINGE (J1650 PER 10MG) SC SCH (18:43)
[2020-03-20] MEDS: ACETAMINOPHEN TAB 650MG DOSE (2X325MG) PO PRN (21:34)
--- NOTE | 2020-03-21 05:37 | IPNPDOC ---
Progress Note Date of Service: Mar 21, 2020 Day#: 2 Progress Note SUBJECT:This lady is a 24-year-old 2, para 2, who was admitted for induction of labor at 39 weeks, having a Heparin window. She has had a history of past pulmonary embolism with the last delivery or pre-delivery. She also has atrial fibrillation and ventricular tachycardia. She was seen by cardiology and cleared. She had an epidural in place and had a spontaneous vaginal delivery of a female weighing 8 pounds 5 ounces (3760 grams). Apgars 8 and 9 at one and five minutes respectively. today is PPD 2 and She has been ambulating, voiding spontaneously without issue and tolerating regular diet. Breast feeding without issue. Reports lochia is like a normal period. OBJECTIVE: VITAL SIGNS: Within normal limits, afebrile. Alert and oriented times three. Breath sounds clear to auscultation. Heart rate: Regular rate and rhythm Abdomen: Fundus firm at U-2. ASSESSMENT:This lady is a 24-year-old 2, para 2, who was admitted for induction of labor at 39 weeks, having a Heparin window. She has had a history of past pulmonary embolism with the last delivery or pre-delivery. She also has atrial fibrillation and ventricular tachycardia. she was restarted on lovenox ( 12HRS AFTER DELIVERY) and is doing well on day 2. Vitals within normal limits, afebrile, hemodynamically stable with no evidence of infection. PLAN: 1. Discharge to home today. 2. Tylenol and Motrin for pain. 3. Encourage breast feeding and ambulation. 4. UNDECIDED for contraception for now- Discussed MIRENA IUD as a very good option for her medical history. 5. Routine PP visit in 6 weeks in clinic. 6. Discussed return precautions at length. VS, I&O, 24H, Fishbone Vital Signs/I&O Vital Signs Date Time Temp Pulse Resp B/P (MAP) Pulse Ox O2 Delivery O2 Flow Rate FiO2 03/20/20 18:00 97.2 83 14 111/69 (83) 03/20/20 08:27 99 Room Air Laboratory Data 24H LABS Laboratory Tests 2 03/20/20 07:35: Nucleated Red Blood Cells % (auto) 0.2H CBC/BMP Laboratory Tests 03/20/20 07:35 ANAHY PICKARD MD Mar 21, 2020 05:37
[2020-03-21 06:00] VITALS: BP 109/62
[2020-03-21] MEDS ORDERED: DOK1CAP7 PO (06:38)
[2020-03-21] MEDS ORDERED: ACET-683 PO (06:38)
[2020-03-21] MEDS: ACETAMINOPHEN TAB 650MG DOSE (2X325MG) PO PRN (07:42)
[2020-03-21] MEDS: PRENATAL VITAMINS CHEWABLE TABLET PO SCH (07:42)
== END 2020-03-21 13:05 | disposition home or self-care (01) | DRG 807 ==
LOC: M LDI 08:23 → M OBS 03-19 10:05
PROVIDERS: ADMIT Obstetrics & Gynecology; ATTEND Obstetrics & Gynecology
PROC: 3E0P7GC Introduction of Other Therapeutic Substance into Female Reproductive, Via Natural or Artificial Opening (ICD-10-PCS; 2020-03-18)
PROC: 10E0XZZ Delivery of Products of Conception, External Approach (ICD-10-PCS; principal; 2020-03-19)
PROC: 10907ZC Drainage of Amniotic Fluid, Therapeutic from Products of Conception, Via Natural or Artificial Opening (ICD-10-PCS; 2020-03-19)
DX: O99.42 Diseases of the circulatory system complicating childbirth (principal); Z37.0 Single live birth; I48.91 Unspecified atrial fibrillation; R00.0 Tachycardia, unspecified; Z3A.39 39 weeks gestation of pregnancy; Z86.711 Personal history of pulmonary embolism; Z79.01 Long term (current) use of anticoagulants; Z91.013 Allergy to seafood; Z91.018 Allergy to other foods

== ENCOUNTER 2020-04-19 18:46 | Emergency (ER) | payer OTHER ==
[~2020-04-19] VITALS: Ht 154.9 cm; Wt 64.3 kg
[~2020-04-19 18:46] MED LIST changes: +ACET-683 PO; +DOK1CAP7 PO; +HEPA1INJ6 IV
--- OUTSIDE RECORDS SUMMARY | 2020-04-19 18:52 | CCD ---
Author Author [facility] Organization [facility] Address Unknown Phone Unavailable Care Team Providers Care Refractory Products Supervisor Name Role Phone Azucena MEANS MD Unavailable Unavailable Azucena MEANS MD Unavailable Unavailable Azucena MEANS MD Unavailable Unavailable Azucena MEANS MD Unavailable Unavailable Azucena MEANS MD Unavailable Unavailable Azucena MEANS MD Unavailable Unavailable Azucena MEANS MD Unavailable Unavailable Azucena MEANS MD Unavailable Unavailable Azucena MEANS MD Unavailable Unavailable Azucena MEANS MD Unavailable Unavailable Azucena MEANS MD Unavailable Unavailable Azucena MEANS MD Unavailable Unavailable Azucena MEANS MD Unavailable Unavailable Azucena MEANS MD Unavailable Unavailable Azucena MEANS MD Unavailable Unavailable Azucena MEANS MD Unavailable Unavailable Azucena MEANS MD Unavailable Unavailable Azucena MEANS MD Unavailable Unavailable Azucena MEANS MD Unavailable Unavailable Azucena MEANS MD Unavailable Unavailable Azucena MEANS MD Unavailable Unavailable Azucena MEANS MD Unavailable Unavailable Azucena MEANS MD Unavailable Unavailable Azucena MEANS MD Unavailable Unavailable Azucena MEANS MD Unavailable Unavailable Azucena MEANS MD Unavailable Unavailable Azucena MEANS MD Unavailable Unavailable Azucena MEANS MD Unavailable Unavailable Azucena MEANS MD Unavailable Unavailable Azucena MEANS MD Unavailable Unavailable Azucena MEANS MD Unavailable Unavailable Azucena MEANS MD Unavailable Unavailable Azucena MEANS MD Unavailable Unavailable Azucena MEANS MD Unavailable Unavailable Azucena MEANS MD Unavailable Unavailable Azucena MEANS MD Unavailable Unavailable Azucena MEANS MD Unavailable Unavailable Azucena MEANS MD Unavailable Unavailable MEANS, E ALBERTINA MD Unavailable Unavailable MEANS, E ALBERTINA MD Unavailable Unavailable MEANS, E ALBERTINA MD Unavailable Unavailable MEANS, E ALBERTINA MD Unavailable Unavailable MEANS, E ALBERTINA MD Unavailable Unavailable MEANS, E ALBERTINA MD Unavailable Unavailable MENAS, E ALBERTINA MD Unavailable Unavailable MEANS, E ALBERTINA MD Unavailable Unavailable MEANS, E ALBERTINA MD Unavailable Unavailable MEANS, E ALBERTINA MD Unavailable Unavailable MEANS, E ALBERTINA MD Unavailable Unavailable MEANS, E ALBERTINA MD Unavailable Unavailable MEANS, E ALBERTINA MD Unavailable Unavailable MEANS, E ALBERTINA MD Unavailable Unavailable MEANS, E ALBERTINA MD Unavailable Unavailable MEANS, E ALBERTINA MD Unavailable Unavailable MEANS, E ALBERTINA MD Unavailable Unavailable MEANS, E ALBERTINA MD Unavailable Unavailable MEANS, E ALBERTINA MD Unavailable Unavailable GUGA, BRENT PA Unavailable Unavailable GUGA, BRENT PA Unavailable Unavailable GUGA, BRENT PA Unavailable Unavailable GUGA, BRENT PA Unavailable Unavailable GUGA, BRENT PA Unavailable Unavailable GUGA, BRENT PA Unavailable Unavailable Re-disclosure Warning The records that you are about to access may contain information from federally-assisted alcohol or drug abuse programs. If such information is present, then the following federally mandated warning applies: This information has been disclosed to you from records protected by federal confidentiality rules (42 CFR part 2). The federal rules prohibit you from making any further disclosure of this information unless further disclosure is expressly permitted by the written consent of the person to whom it pertains or as otherwise permitted by 42 CFR part 2. A general authorization for the release of medical or other information is NOT sufficient for this purpose. The Federal rules restrict any use of the information to criminally investigate or prosecute any alcohol or drug abuse patient.The records that you are about to access may contain highly sensitive health information, the redisclosure of which is protected by Article 27-F of the [facility] Public Health law. If you continue you may have access to information: Regarding HIV / AIDS; Provided by facilities licensed or operated by the [facility] Office of Mental Health; or Provided by the [facility] Office for People With Developmental Disabilities. If such information is present, then the following [facility] mandated warning applies: This information has been disclosed to you from confidential records which are protected by state law. State law prohibits you from making any further disclosure of this information without the specific written consent of the person to whom it pertains, or as otherwise permitted by law. Any unauthorized further disclosure in violation of state law may result in a fine or custodial sentence or both. A general authorization for the release of medical or other information is NOT sufficient authorization for further disc losure. Encounters Encounter Providers Location Date Indications Data Source(s ) Outpatient Attender: ALBERTINA MEANS MD Main Office 10/01/2019 11:00:00 AM EDT [facility] ([facility]) Outpatient Referrer: BRENT ARRIOLA 08/18/2019 05:44:00 AM EDT [facility] Radiology Imaging Outpatient Referrer: BRENT ARRIOLA 07/23/2019 05:22:00 AM EDT [facility] Medications Medication Brand Name Start Date Product Form Dose Route Admi nistrative Instructions Pharmacy Instructions Status Indications Reaction Description Data Source(s) Fluticasone Propionate Fluticasone Propionate 11/08/2019 12:00:00 AM E DT active [facility] Flonase Allergy Relief Flonase Allergy Relief 10/01/2019 12:00:00 AM E DT completed [facility] ([facility]) Loratadine 10 MG Oral Capsule Loratadine 10/01/2019 12:00:00 AM EDT ORAL active [facility] ([facility]) Calcium Carbonate 500 MG Chewable Tablet [Tums] Tums 09/30/2019 12:00:00 AM EDT ORAL active [facility] ( [facility]) 0.4 ML Enoxaparin sodium 100 MG/ML Prefilled Syringe [Loveno x] Lovenox 09/30/2019 12:00:00 AM EDT active [facility] ([facility]) Tylenol Tylenol 09/30/2019 12:00:00 AM EDT active [facility] ([facility]) POLYETHYLENE GLYCOL 3350 142 MG/ML Oral Solution [Miralax] M iralax 09/30/2019 12:00:00 AM EDT ORAL active [facility] ([facility]) Simethicone 125 MG Chewable Tablet Gas Relief Extra Strength 09/30/2019 12:00:00 AM EDT active [facility] ([facility]) 500 mg 05/21/2019 12:00:00 AM EDT tablet 40 TAKE ONE TABLET BY MOUTH FOUR TIMES A DAY FOR 10 DAYS TAKE ONE TABLET BY MOUTH FOUR TIMES A DAY FOR 10 DAYS SOLD: 05/21/2019 [facility] Insurance Providers Payer name Policy type / Coverage type Policy ID Covered democrat ID Covered democrat's relationship to osborn Policy [place] Plan Information EAST HUMANA [id number] HUMANA EAST REG O [id number] S [id number] SELF PAY O UNAVAILABLE S UNAVAILA BLE EAST HUMANA [id number] HU2 [id number] PGBA [place] [id number] [id number] PI PI [id number] Spo [id number] ACTIVE DUTY [id number] [id number] FOR LIFE O [id number] P [id number] O UNAVAILABLE UNAVAILA BLE Problems, Conditions, and Diagnoses Code Display Name Description Problem Type Effective Dates Data Source(s) 7362254 Tachycardia Tachycardia Problem 10/01/2019 12:00:00 AM EDT [facility] ([facility]) [id number] H/O: pulmonary embolus H/O: pulmonary embolus Problem 10/01/2019 12:00:00 AM EDT [facility] ([facility]) [id number] Asthma without status asthmaticus Asthma without status asthmaticus Problem 10/01/2019 12:00:00 AM EDT [facility] [id number] Migraine Migraine Problem 10/01/2019 12:00:00 AM ED T [facility] ([facility]) [id number] Precordial pain Precordial pain Problem 10/01/2019 12:0 0:00 AM EDT [facility] ([facility]) [id number] Syncope and collapse Syncope and collapse Problem 10/01/2019 12:00:00 AM EDT [facility] ([facility]) [id number] Electrocardiogram abnormal Electrocardiogram abnormal Problem 10/01/2019 12:00:00 AM EDT [facility] ([facility]) Surgeries/Procedures Procedure Description Date Indications Data Source(s) CV STRS TST XERS&/OR RX CONT ECG PHYS SI&R 11/10/2019 12:00:00 AM EDT [facility] ([facility]) XTRNL PT ACTIVATED ECG RECORD MONITOR 30 DAYS 10/12/19 12:00:00 AM EDT [facility] ([facility]) XTRNL PT ACTIVTD ECG DWNLD 30 DAYS PHYS R&I 10/12/2019 12:00:00 AM EDT [facility] ([facility]) ECG ROUTINE ECG W/LEAST 12 LDS W/I&R 10/01/2019 12:00: 00 AM [facility] Results ID Date Data Source [id number] 02/06/2020 12:00:00 AM EST [facility] Name Value Range Interpretation Code Description Data Rosario rce(s) Supporting Document(s) SARS coronavirus 2 RNA [Presence] in Res piratory specimen by STEVE with probe detection [facility] This lab was ordered by [facility] [employer] [facility] and reported by [employer]. ID Date Data Source [id number] 11/21/2019 12:00:00 AM EDT [facility] Name Value Range Interpretation Code Description Data Rosario rce(s) Supporting Document(s) SARS coronavirus 2 RNA [Presence] in Res piratory specimen by STEVE with probe detection [facility] lab [facility] [employer] [facility] and reported by [employer]. ID Date Data Source [id number] 08/10/2019 11:55:00 AM EDT [facility] Name Value Range Interpretation Code Description Data Rosario rce(s) Supporting Document(s) Hemoglobin 11.8 [facility] ([facility]) Platelets 320 172-450 [facility] White Blood Count 11.1 5.0-10.0 [facility]) Red Blood Count 4.15 4.00-5.40 [facility]) Hematocrit 36.3 [facility] ([facility]) ID Date Data Source [id number] 08/10/2019 11:55:00 AM EDT [facility] ([facility]) Name Value Range Interpretation Code Description Data Rosario rce(s) Supporting Document(s) Glucose 86 83-110 [facility] Sodium 139 136-145 [facility] Blood Urea Nitrogen 7 7-18 [facility] ([facility]) Creatinine 0.4 0.6-1.0 [facility] ([facility]) Potassium 4.0 3.5-5.1 [facility] Chloride 103 98-107 [facility] Carbon Dioxide 21.0 21-32 [facility] ([facility]) Glomerular filtration rate/1.73 sq M.pre dicted [Volume Rate/Area] in Serum or Plasma by Creatinine-based formula (MDRD) Laboratory test result [facility] ([facility]) Calcium 4.9 8.2-9.6 [facility] Procedure Social History Code Duration Value Status Description Data Source(s ) Smoking 10/01/2019 12:00:00 AM EDT Patient has never smoked co mpleted Patient has never smoked [facility] ([facility]) Vital Signs ID Date Data Source UNK Name Value Range Interpretation Code Description Data Source(s) Diastolic blood pressure--standing 64 mm[Hg] 6 4 mm[Hg] [facility] ([facility]) LA Systolic blood pressure--standing 96 mm[Hg] 96 mm[Hg] [facility] ([facility]) LA Diastolic blood pressure--supine 48 mm[Hg] 48 mm[Hg] [facility] ([facility]) Ra Systolic blood pressure--supine 84 mm[Hg] 84 m m[Hg] [facility] ([facility]) Ra Diastolic blood pressure--sitting 54 mm[Hg] 54 mm[Hg] [facility] ([facility]) Medium cuff, Ra; 92/60 LA Systolic blood pressure--sitting 88 mm[Hg] 88 mm[Hg] [facility] ([facility]) Medium cuff, Ra; 92/60 LA Respiratory rate 18 /min 18 /min [facility] ( [facility]) Heart rate 88 /min 88 /min [facility] ([facility]) regular Body mass index (BMI) [Ratio] 24.1 kg/m2 24.1 k g/m2 [facility] ([facility]) Body height 62 [in_i] 62 [in_i] [facility] ([facility]) 5'2" Body weight 132.00 [lb_av] 132.00 [lb_av] [facility] ([facility])
[2020-04-19] MEDS ORDERED: LOVE1INJ SC (18:57)
[2020-04-19] MEDS ORDERED: PROAAER10 INH (18:58)
[2020-04-19 20:51] LABS: BASO # 0.1 10^3/uL (0.0-0.2); BASO % 0.8 % (0.0-1.0); EOS # 0.1 10^3/uL (0.0-0.5); EOS % 0.7 % (0.0-3.0); HEMATOCRIT 36.7 % (36.0-47.0); HEMOGLOBIN 10.1 g/dl (12.0-15.5); LYMPH # 1.8 10^3/uL (1.5-5.0); LYMPH % 20.3 % (24.0-44.0); MEAN CORPUSCULAR HEMOGLOBIN 20.8 pg (27.0-33.0); MEAN CORPUSCULAR HGB CONC 27.5 g/dl (32.0-36.5); MEAN CORPUSCULAR VOLUME 75.5 fl (80.0-96.0); MONO # 0.8 10^3/uL (0.0-0.8); MONO % 8.6 % (2.0-8.0); NEUTROPHILS # 6.2 10^3/uL (1.5-8.5); NEUTROPHILS % 69.4 % (36.0-66.0); PLATELET COUNT, AUTOMATED 423 10^3/uL (150-450); RED BLOOD COUNT 4.86 10^6/uL (4.00-5.40); WHITE BLOOD COUNT 8.9 10^3/uL (4.0-10.0)
--- OUTSIDE RECORDS SUMMARY | 2020-04-19 20:51 | CCD ---
Author Author [facility] Organization [facility] Address Unknown Phone Unavailable Care Team Providers Care Cafeteria Director Name Role Phone Azucena MEANS MD Unavailable [...] is protected by Article 27-F of the [facility] Public Health law. If you continue you may have access to information: Regarding HIV / AIDS; Provided by facilities licensed or operated by the [facility] Office of Mental Health; or Provided by the [facility] Office for People With Developmental Disabilities. If such information is present, then the following [facility] mandated warning applies: This information has been [...] law may result in a fine or usp sentence or both. A general authorization for the release of medical or other information is NOT sufficient authorization for further disc losure. Encounters Encounter Providers Location Date Indications Data Source(s ) Outpatient Attender: ALBERTINA MEANS MD Main Office 10/01/2019 11:00:00 AM EDT [facility] ([facility]) Outpatient Referrer: BRENT ARRIOLA 08/18/2019 05:44:00 AM EDT [facility] Imaging Outpatient Referrer: BRENT ARRIOLA 07/23/2019 05:22:00 AM EDT [facility] Medications Medication Brand Name Start Date Product Form Dose Route Admi nistrative Instructions Pharmacy Instructions Status Indications Reaction Description Data Source(s) Fluticasone Propionate Fluticasone Propionate 11/08/2019 12:00:00 AM E DT active [facility]) Flonase Allergy Relief Flonase Allergy Relief 10/01/2019 12:00:00 AM E DT completed [facility]) Loratadine 10 MG Oral Capsule Loratadine 10/01/2019 12:00:00 AM EDT ORAL active [facility] ([facility]) Calcium Carbonate 500 MG Chewable Tablet [Tums] Tums 09/30/2019 12:00:00 AM EDT ORAL active [facility] ( [facility]) 0.4 ML Enoxaparin sodium 100 MG/ML Prefilled Syringe [Loveno x] Lovenox 09/30/2019 12:00:00 AM EDT active [facility] ([facility]) Tylenol Tylenol 09/30/2019 12:00:00 AM EDT active [facility] ([facility]) POLYETHYLENE GLYCOL 3350 142 MG/ML Oral Solution [Miralax] M iralax 09/30/2019 12:00:00 AM EDT ORAL active [facility] ([facility]) Simethicone 125 MG Chewable Tablet Gas Relief Extra Strength 09/30/2019 12:00:00 AM EDT active [facility] ([facility]) 500 mg 05/21/2019 12:00:00 AM EDT tablet 40 TAKE ONE TABLET BY MOUTH FOUR TIMES A DAY FOR 10 DAYS TAKE ONE TABLET BY MOUTH FOUR TIMES A DAY FOR 10 DAYS SOLD: 05/21/2019 [facility] Insurance Providers Payer name Policy type / Coverage type Policy ID Covered republican ID Covered republican's relationship to osborn Policy [place] Plan Information EAST HUMANA [id number] HUMANA [place]AST REG O [id number] S [id number] SELF PAY O UNAVAILABLE S UNAVAILA BLE EAST HUMANA [id number] HU2 [id number] PGBA [place] [id number] HU2 [id number] PI PI [id number] Spo [id number] ACTIVE DUTY [id number] [id number] FOR LIFE O [id number] P [id number] O UNAVAILABLE UNAVAILA BLE Problems, Conditions, and Diagnoses Code Display Name Description Problem Type Effective Dates Data Source(s) [id number] Tachycardia Tachycardia Problem 10/01/2019 12:00:00 AM EDT [facility] ([facility]) [id number] H/O: pulmonary embolus H/O: pulmonary embolus Problem 10/01/2019 12:00:00 AM EDT [facility] ([facility]) [id number] Asthma without status asthmaticus Asthma without status asthmaticus Problem 10/01/2019 12:00:00 AM EDT [facility] [id number] Migraine Migraine Problem 10/01/2019 12:00:00 AM ED T [facility] ([facility]) [id number] Precordial pain Precordial pain Problem 10/01/2019 12:0 0:00 AM EDT [facility] ([facility]) [id number] Syncope and collapse Syncope and collapse Problem 10/01/2019 12:00:00 AM EDT [facility] ([facility]) [id number] Electrocardiogram abnormal Electrocardiogram abnormal Problem 10/01/2019 12:00:00 AM EDT [facility] ([facility]) Surgeries/Procedures Procedure Description Date Indications Data Source(s) CV STRS TST XERS&/OR RX CONT ECG PHYS SI&R 11/10/2019 12:00:00 AM EDT [facility] ([facility]) XTRNL PT ACTIVATED ECG RECORD MONITOR 30 DAYS 10/12/19 12:00:00 AM EDT [facility] ([facility]) XTRNL PT ACTIVTD ECG DWNLD 30 DAYS PHYS R&I 10/12/2019 12:00:00 AM EDT [facility] ([facility]) ECG ROUTINE ECG W/LEAST 12 LDS W/I&R 10/01/2019 12:00: 00 AM EDT [facility]) Results ID Date Data Source [id number] 02/06/2020 12:00:00 AM EST [facility] Name Value Range Interpretation Code Description Data Rosario rce(s) Supporting Document(s) SARS coronavirus 2 RNA [Presence] in Res piratory specimen by STEVE with probe detection [facility] This lab was ordered by [facility] [employer] [facility] and reported by [employer]. ID Date Data Source [id number] 11/21/2019 12:00:00 AM EDT [facility] Name Value Range Interpretation Code Description Data Rosario rce(s) Supporting Document(s) SARS coronavirus 2 RNA [Presence] in Res piratory specimen by STEVE with probe detection [facility] [employer] [facility] and reported by [employer]. ID Date Data Source [id number] 08/10/2019 11:55:00 AM EDT [facility]) Name Value Range Interpretation Code Description Data Rosario rce(s) Supporting Document(s) Hemoglobin 11.8 [facility] ([facility]) Platelets 320 172-450 [facility] White Blood Count 11.1 5.0-10.0 [facility]) Red Blood Count 4.15 4.00-5.40 [facility]) Hematocrit 36.3 [facility] ([facility]) ID Date Data Source [id number] 08/10/2019 11:55:00 AM EDT [facility] ([facility]) Name Value Range Interpretation Code Description Data Rosario rce(s) Supporting Document(s) Glucose 86 83-110 [facility] Sodium 139 136-145 [facility] Blood Urea Nitrogen 7 7-18 [facility] ([facility]) Creatinine 0.4 0.6-1.0 [facility] ([facility]) Potassium 4.0 3.5-5.1 [facility] Chloride 103 98-107 [facility]) Carbon Dioxide 21.0 21-32 [facility] ([facility]) Glomerular filtration rate/1.73 sq M.pre dicted [Volume Rate/Area] in Serum or Plasma by Creatinine-based formula (MDRD) Laboratory test result [facility] ([facility]) Calcium 4.9 8.2-9.6 [facility] Procedure Social History Code Duration Value Status Description Data Source(s ) Smoking 10/01/2019 12:00:00 AM EDT Patient has never smoked co mpleted Patient has never smoked [facility] ([facility]) Vital Signs ID Date Data Source UNK Name Value Range Interpretation Code Description Data Source(s) Diastolic blood pressure--standing 64 mm[Hg] 6 4 mm[Hg] [facility] ([facility]) LA Systolic blood pressure--standing 96 mm[Hg] 96 mm[Hg] [facility] ([facility]) LA Diastolic blood pressure--supine 48 mm[Hg] 48 mm[Hg] [facility] ([facility]) Ra Systolic blood pressure--supine 84 mm[Hg] 84 m m[Hg] [facility] ([facility]) Ra Diastolic blood pressure--sitting 54 mm[Hg] 54 mm[Hg] [facility] ([facility]) Medium cuff, Ra; 92/60 LA Systolic blood pressure--sitting 88 mm[Hg] 88 mm[Hg] [facility] ([facility]) Medium cuff, Ra; 92/60 LA Respiratory rate 18 /min 18 /min [facility] ( [facility]) Heart rate 88 /min 88 /min [facility] ([facility]) regular Body mass index (BMI) [Ratio] 24.1 kg/m2 24.1 k g/m2 [facility] ([facility]) Body height 62 [in_i] 62 [in_i] [facility] ([facility]) 5'2" Body weight 132.00 [lb_av] 132.00 [lb_av] [facility] ([facility])
[2020-04-19 21:08] LABS: INR 0.98; PROTHROMBIN TIME 13.2 SECONDS (12.5-14.3)
[2020-04-19 21:09] LABS: PARTIAL THROMBOPLASTIN TIME 31.6 SECONDS (24.2-38.5)
[2020-04-19 21:27] LABS: ALBUMIN 4.5 GM/DL (3.2-5.2); ALT/SGPT 31 U/L (12-78); BILIRUBIN,DIRECT 0.1 MG/DL (0.0-0.2); BILIRUBIN,TOTAL 0.6 MG/DL (0.2-1.0); BLOOD UREA NITROGEN 9 MG/DL (7-18); CALCIUM LEVEL 9.7 MG/DL (8.5-10.1); CARBON DIOXIDE LEVEL 25 MEQ/L (21-32); CHLORIDE LEVEL 108 MEQ/L (98-107); CREATININE FOR GFR 0.85 MG/DL (0.55-1.30); GLOMERULAR FILTRATION RATE > 60.0 (>60); GLUCOSE, FASTING 87 MG/DL (70-100); LIPASE 133 U/L (73-393); MAGNESIUM LEVEL 2.2 MG/DL (1.8-2.4); POTASSIUM SERUM 4.1 MEQ/L (3.5-5.1); SODIUM LEVEL 140 MEQ/L (136-145); TOTAL PROTEIN 8.5 GM/DL (6.4-8.2)
[2020-04-19 22:33] LABS: HCG, SERUM QUALITATIVE NEGATIVE (NEGATIVE)
[2020-04-19 22:34] LABS: D-DIMER QUANT 279.82 ng/ml (<500)
[2020-04-19 23:09] VITALS: BP 128/60
--- NOTE | 2020-04-19 23:30 | REPVR ---
PROCEDURE INFORMATION: Exam: US Duplex Lower Extremity Veins, Bilateral Exam date and time: 04/19/2020 10:52 PM Age: 25 years old Clinical indication: Pain; Leg, lower; Bilateral; Additional info: Bilat leg cramping, HX of clots TECHNIQUE: Imaging protocol: Real-time duplex ultrasound of the extremities with 2-D mason scale, color Doppler flow and spectral waveform analysis with image documentation. Complete exam focused on the bilateral lower extremity veins. COMPARISON: US Duplex, Ext LOWER veins, bilat 08/10/2019 5:45 PM FINDINGS: Right deep veins: Unremarkable. The common femoral, femoral, proximal profunda femoral and popliteal veins are patent without thrombus. Normal Doppler waveforms. Normal compressibility and/or augmentation response. Right superficial veins: Saphenofemoral junction is patent without thrombus. Left deep veins: Unremarkable. The common femoral, femoral, proximal profunda femoral and popliteal veins are patent without thrombus. Normal Doppler waveforms. Normal compressibility and/or augmentation response. Left superficial veins: Saphenofemoral junction is patent without thrombus. Soft tissues: Unremarkable. IMPRESSION: No evidence of deep vein thrombosis. Electronically signed by: Tan Chen On 04/19/2020 23:30:56 PM
== END 2020-04-19 23:21 | disposition home or self-care (01) ==
LOC: M ED 18:46
DX: R07.89 Other chest pain (principal); R25.2 Cramp and spasm; R42 Dizziness and giddiness; Z86.711 Personal history of pulmonary embolism; G43.909 Migraine, unspecified, not intractable, without status migrainosus; D64.9 Anemia, unspecified; K21.9 Gastro-esophageal reflux disease without esophagitis; J45.909 Unspecified asthma, uncomplicated; F33.9 Major depressive disorder, recurrent, unspecified; F41.9 Anxiety disorder, unspecified; Z91.013 Allergy to seafood; Z91.018 Allergy to other foods; Z79.01 Long term (current) use of anticoagulants; Z79.51 Long term (current) use of inhaled steroids

== ENCOUNTER 2020-07-13 01:54 | Emergency (ER) | payer OTHER ==
[2020-07-13] MEDS ORDERED: FERR325T18 (02:07)
[2020-07-13 04:17] VITALS: BP 140/90
== END 2020-07-13 04:24 | disposition home or self-care (01) ==
LOC: M ED 01:54
DX: F41.0 Panic disorder [episodic paroxysmal anxiety] (principal); Z91.018 Allergy to other foods; Z91.013 Allergy to seafood

== ENCOUNTER 2020-07-29 23:10 | Emergency (ER) | payer OTHER ==
[~2020-07-29] VITALS: Ht 154.9 cm; Wt 56.3 kg
[~2020-07-29 23:10] MED LIST changes: +FERR325T18
[2020-07-29] MEDS ORDERED: IRON15CH PO (23:22)
[2020-07-30 01:31] LABS: BASO # 0.1 10^3/uL (0.0-0.2); EOS # 0.1 10^3/uL (0.0-0.5); EOS % 1.2 % (0.0-3.0); HEMATOCRIT 33.5 % (36.0-47.0); LYMPH # 2.6 10^3/uL (1.5-5.0); LYMPH % 34.2 % (24.0-44.0); MEAN CORPUSCULAR HEMOGLOBIN 21.7 pg (27.0-33.0); MEAN CORPUSCULAR HGB CONC 29.9 g/dl (32.0-36.5); MEAN CORPUSCULAR VOLUME 72.7 fl (80.0-96.0); MONO % 12.3 % (2.0-8.0); NEUTROPHILS % 51.2 % (36.0-66.0); PLATELET COUNT, AUTOMATED 375 10^3/uL (150-450); RED BLOOD COUNT 4.61 10^6/uL (4.00-5.40); WHITE BLOOD COUNT 7.7 10^3/uL (4.0-10.0)
[2020-07-30 02:06] LABS: ALBUMIN 4.3 GM/DL (3.2-5.2); ALT/SGPT 26 U/L (12-78); BILIRUBIN,DIRECT 0.2 MG/DL (0.0-0.2); BILIRUBIN,TOTAL 0.7 MG/DL (0.2-1.0); BLOOD UREA NITROGEN 11 MG/DL (7-18); CALCIUM LEVEL 9.5 MG/DL (8.5-10.1); CARBON DIOXIDE LEVEL 26 MEQ/L (21-32); CHLORIDE LEVEL 104 MEQ/L (98-107); CREATININE FOR GFR 0.64 MG/DL (0.55-1.30); GLOMERULAR FILTRATION RATE > 60.0 (>60); GLUCOSE, FASTING 78 MG/DL (70-100); LIPASE 147 U/L (73-393); POTASSIUM SERUM 3.6 MEQ/L (3.5-5.1); SODIUM LEVEL 139 MEQ/L (136-145); TOTAL PROTEIN 7.8 GM/DL (6.4-8.2)
--- NOTE | 2020-07-30 04:04 | REPVR ---
PROCEDURE INFORMATION: Exam: XR Abdomen Exam date and time: 07/30/2020 3:02 AM Age: 25 years old Clinical indication: Other: Llq abd pain, constipation TECHNIQUE: Imaging protocol: XR of the abdomen. Views: Frontal supine view of the abdomen. 1 View. COMPARISON: [facility]ST [facility] US 07/14/2019 1:31 AM FINDINGS: Gastrointestinal tract: Unremarkable bowel gas pattern. No gaseous distention to suggest obstruction. Moderate to large amount of fecal material within the mid colon. Bones/joints: Unremarkable. Soft tissues: Unremarkable. IMPRESSION: Moderate to large amount of fecal material within the mid colon. No obstruction. Electronically signed by: Humphrey Ortiz On 07/30/2020 04:03:30 AM
[2020-07-30 04:30] VITALS: BP 145/90
[2020-07-30] MEDS ORDERED: MAGNESIUM CITRATE 300 ML BTL PO ONE (04:40)
== END 2020-07-30 04:56 | disposition home or self-care (01) ==
LOC: M ED 23:10
DX: K59.00 Constipation, unspecified (principal); F41.1 Generalized anxiety disorder; Z91.018 Allergy to other foods; Z91.013 Allergy to seafood

== ENCOUNTER 2020-10-04 00:07 | Emergency (ER) | payer OTHER ==
[~2020-10-04] VITALS: Ht 154.9 cm; Wt 50.3 kg
[~2020-10-04 00:07] MED LIST changes: +DOK1CAP4 PO; -DOK1CAP7 PO; +IRON15CH PO
[2020-10-04 05:25] LABS: BASO # 0.1 10^3/uL (0.0-0.2); BASO % 0.7 % (0.0-1.0); EOS # 0.1 10^3/uL (0.0-0.5); EOS % 1.6 % (0.0-3.0); HEMOGLOBIN 10.2 g/dl (12.0-15.5); LYMPH # 3.1 10^3/uL (1.5-5.0); LYMPH % 37.7 % (24.0-44.0); MEAN CORPUSCULAR HEMOGLOBIN 24.1 pg (27.0-33.0); MEAN CORPUSCULAR HGB CONC 30.9 g/dl (32.0-36.5); MONO % 12.6 % (2.0-8.0); NEUTROPHILS # 3.9 10^3/uL (1.5-8.5); NEUTROPHILS % 47.3 % (36.0-66.0); PLATELET COUNT, AUTOMATED 354 10^3/uL (150-450); RED BLOOD COUNT 4.23 10^6/uL (4.00-5.40); WHITE BLOOD COUNT 8.3 10^3/uL (4.0-10.0)
[2020-10-04 05:47] LABS: BLOOD UREA NITROGEN 12 MG/DL (7-18); CALCIUM LEVEL 8.8 MG/DL (8.5-10.1); CARBON DIOXIDE LEVEL 25 MEQ/L (21-32); CHLORIDE LEVEL 110 MEQ/L (98-107); CREATININE FOR GFR 0.53 MG/DL (0.55-1.30); GLOMERULAR FILTRATION RATE > 60.0 (>60); GLUCOSE, FASTING 78 MG/DL (70-100); HCG, SERUM QUANTITATIVE < 1.0 MIU/ML; SODIUM LEVEL 143 MEQ/L (136-145)
[2020-10-04 06:48] LABS: GC DNA AMPLIFICATION NEGATIVE (NEGATIVE)
[2020-10-04 07:48] VITALS: BP 117/87
--- NOTE | 2020-10-04 08:27 | REPVR ---
PROCEDURE INFORMATION: Exam: US Nonobstetric Pelvis; Complete Exam date and time: 10/04/2020 6:47 AM Age: 25 years old Clinical indication: Pelvic pain; Additional info: Bilateral pelvic pain, l>r TECHNIQUE: Imaging protocol: Transabdominal pelvic nonobstetric ultrasound. Complete exam. Real time ultrasound with image documentation. COMPARISON: US OBS [facility] 09/26/2019 4:57 PM FINDINGS: Uterus/cervix: Uterus is anteverted at 7.5 x 5.5 x 4.5 cm without focal mass. The endometrium is smooth at 4 mm. Right adnexa: The right ovary is unremarkable at 2.8 cm. Preserved arterial and venous flow. Left adnexa: The left ovary is unremarkable at 2.7 cm. Preserved arterial and venous flow. Intraperitoneal space: No significant free fluid. Urinary bladder: The urinary bladder is collapsed. IMPRESSION: No acute abnormality and no ultrasound explanation for the patient's pain. Electronically signed by: Rui Vides On 10/04/2020 08:26:30 AM
== END 2020-10-04 08:48 | disposition home or self-care (01) ==
LOC: M ED 00:07
DX: R10.2 Pelvic and perineal pain (principal); D25.9 Leiomyoma of uterus, unspecified; G43.909 Migraine, unspecified, not intractable, without status migrainosus; D64.9 Anemia, unspecified; F41.9 Anxiety disorder, unspecified; F32.9 Major depressive disorder, single episode, unspecified; Z86.711 Personal history of pulmonary embolism; Z79.899 Other long term (current) drug therapy; Z91.018 Allergy to other foods; Z91.013 Allergy to seafood